=== PATIENT | male | born 1965 | race Caucasian/White ===

== ENCOUNTER 2023-08-09 16:35 | Observation (INO) ==
--- NOTE | 2023-08-09 16:41 | ED Triage Note ---
Date of Service August 09, 2023 Provider in Triage Author: Matt Smith History of Present Illness This patient was briefly evaluated while in triage. An abbreviated physical exam was performed. This patient is a 58-year-old Male who presents to the ED for evaluation of chest pain, began this am. Began as aching. No recent trauma or injury. No hx or heart issues. Physical Exam GENERAL: 58 year old male. In no acute distress. SKIN: No lesions or rashes. HEART: Irregular rate and rhythm. LUNGS: Clear to auscultation. ABDOMEN: Bowel sounds normoactive. No guarding or rigidity. No tenderness of palpation. NEURO: Alert and oriented. No deficits. MUSCULOSKELETAL: No deformities to inspection of the extremities. PSYCH: Patient is pleasant and answers all questions appropriately. Hypertensive and tachycardic. Initial orders for labs and / or imaging were placed and patient was placed and patient taken to room for further assessment.
[2023-08-09] MEDS ORDERED: NITROGLYCERIN SL 0.4 MG/TAB TAB SL STA ×2 (17:00→18:57)
[2023-08-09] MEDS ORDERED: NITROGLYCERIN SL 0.4 MG/TAB TAB ONE (17:01)
[2023-08-09 17:05] LABS: Basophils # (auto) 0.06 K/uL (0.00-0.20); Basophils % (auto) 0.4 %; Eosinophils # (auto) 0.01 K/uL (0.00-0.50); Eosinophils % (auto) 0.1 %; Hematocrit (blood only) 42.5 % (42.0-52.0); Hemoglobin 15.2 g/dl (14.0-18.0); Immature Granulocytes # (auto) 0.07 K/uL (0.01-0.20); Immature Granulocytes % (auto) 0.5 %; Lymphocytes # (auto) 1.14 K/uL (1.20-3.40); Mean Corpuscular Hemoglobin 33.6 pg (25.0-34.0); Mean Corpuscular Hgb Conc 35.8 g/dL (32.0-36.0); Mean Platelet Volume 10.1 fL (9.4-12.4); Monocytes # (auto) 1.34 K/uL (0.11-0.59); Monocytes % (auto) 9.4 %; Neutrophils # (auto) 11.57 K/uL (1.40-6.50); Neutrophils % (auto) 81.6 %; Platelet Count 248 K/uL (130-400); RDW Coefficient of Variation 11.9 % (11.5-14.5); RDW Standard Deviation 41.6 fL (36.4-46.3); Red Blood Count 4.52 M/uL (4.70-6.10); White Blood Count 14.19 K/ul (4.8-10.8)
[2023-08-09] MEDS ORDERED: OPTIRAY 320 125ml IV ONE (17:09)
--- NOTE | 2023-08-09 17:11 | Emergency Department Note ---
History of Present Illness General Chief Complaint: Chest Pain Stated Complaint: CHEST PAIN, LT RIB PAIN Time Seen by Provider: 08/09/23 16:55 History of Present Illness Provider Complaint: chest pain Time: 09:00 Duration: constant and progressively worsening Onset: during rest Pain Location: left chest Pain Radiation: none Severity: moderate Maximum Pain Intensity: 5 Current Pain Intensity: 5 Quality: + sharp Relieved By: + nothing Exacerbated By: + nothing Context: no recent illness, no recent surgery, no recent immobilization, no recent travel, no trauma/injury, no new medications or no history of DVT/PE Associated symptoms: no nausea, no vomiting, no diaphoresis, no dyspnea, no syncope, no palpitations, no fever or no cough Treatments prior to arrival: none Home Medications Medication Instructions Recorded Confirmed Type loratadine 10 mg tablet (Claritin) 10 mg PO DAILY PRN allergies 02/05/21 08/09/23 History Allergies Allergy/AdvReac Type Severity Reaction Status Date / Time No Known Allergies Allergy Verified 08/09/23 20:39 Past Med/Surg History Medical History Patient denies significant medical history Seasonal allergies Surgical History History of tonsillectomy Social History Smoking Status: Never smoker Do You Dip or Chew Tobacco: No; Hx Alcohol Use: Yes Alcohol type: wine Preferred Language: Romanian Communication Ability: Effective [employer] Required: No Beliefs That Will Affect Care: None marital status: Current Living Situation: Spouse and Family current occupational status: employed Feels Safe at Home: Yes Physical Exam Vital Signs Vital Signs - 24 hr 08/09/23 16:39 08/09/23 16:59 08/09/23 16:59 Temperature 36.4 C L Temperature Source Temporal Artery Scan Pulse Rate 128 H 128 H Pulse Rate from SpO2 Sensor 127 H Respiratory Rate 19 36 H Respiratory Effort / Characteristics Non-Labored Respiratory Depth Normal Blood Pressure 216/124 H 202/141 H Blood Pressure Mean 154 165 Pulse Oximetry 95 95 Oxygen Delivery Method Room Air Room Air Sepsis Recent Fever Within 48 Hours No Sepsis New/Unexplained Change in Mental Status No Sepsis Action Taken by Nursing No Action Required 08/09/23 17:00 08/09/23 17:00 08/09/23 17:05 Temperature Temperature Source Pulse Rate 125 H 130 H Pulse Rate from SpO2 Sensor 125 H 131 H Respiratory Rate 28 H 28 H Respiratory Effort / Characteristics Respiratory Depth Blood Pressure 204/136 H Blood Pressure Mean 158 Pulse Oximetry 94 94 Oxygen Delivery Method Room Air Room Air Sepsis Recent Fever Within 48 Hours Sepsis New/Unexplained Change in Mental Status Sepsis Action Taken by Nursing 08/09/23 17:17 08/09/23 17:19 08/09/23 17:20 Temperature Temperature Source Pulse Rate 129 H 122 H 120 H Pulse Rate from SpO2 Sensor 122 H 120 H Respiratory Rate 27 H 29 H Respiratory Effort / Characteristics Respiratory Depth Blood Pressure 184/121 H Blood Pressure Mean 140 Pulse Oximetry 94 94 Oxygen Delivery Method Room Air Room Air Sepsis Recent Fever Within 48 Hours Sepsis New/Unexplained Change in Mental Status Sepsis Action Taken by Nursing 08/09/23 17:20 08/09/23 17:22 08/09/23 17:25 Temperature Temperature Source Pulse Rate 119 H 122 H Pulse Rate from SpO2 Sensor 119 H 123 H Respiratory Rate 25 H 26 H Respiratory Effort / Characteristics Respiratory Depth Blood Pressure Blood Pressure Mean Pulse Oximetry 95 94 95 Oxygen Delivery Method Room Air Sepsis Recent Fever Within 48 Hours Sepsis New/Unexplained Change in Mental Status Sepsis Action Taken by Nursing 08/09/23 17:30 08/09/23 17:30 08/09/23 17:35 Temperature Temperature Source Pulse Rate 123 H 123 H Pulse Rate from SpO2 Sensor 123 H 123 H Respiratory Rate 23 26 H Respiratory Effort / Characteristics Respiratory Depth Blood Pressure 176/124 H Blood Pressure Mean 141 Pulse Oximetry 96 96 Oxygen Delivery Method Sepsis Recent Fever Within 48 Hours Sepsis New/Unexplained Change in Mental Status Sepsis Action Taken by Nursing 08/09/23 17:40 08/09/23 17:41 08/09/23 17:41 Temperature Temperature Source Pulse Rate 116 H 126 H Pulse Rate from SpO2 Sensor 116 H 126 H Respiratory Rate 31 H 31 H Respiratory Effort / Characteristics Respiratory Depth Blood Pressure 177/115 H 177/115 H Blood Pressure Mean 135 147 Pulse Oximetry 95 94 Oxygen Delivery Method Room Air Sepsis Recent Fever Within 48 Hours Sepsis New/Unexplained Change in Mental Status Sepsis Action Taken by Nursing 08/09/23 17:45 08/09/23 17:50 08/09/23 17:51 Temperature Temperature Source Pulse Rate 119 H 124 H 124 H Pulse Rate from SpO2 Sensor 119 H Respiratory Rate 30 H 27 H 22 Respiratory Effort / Characteristics Respiratory Depth Blood Pressure Blood Pressure Mean Pulse Oximetry 95 Oxygen Delivery Method Sepsis Recent Fever Within 48 Hours Sepsis New/Unexplained Change in Mental Status Sepsis Action Taken by Nursing 08/09/23 17:51 08/09/23 17:55 08/09/23 18:00 Temperature Temperature Source Pulse Rate 124 H Pulse Rate from SpO2 Sensor 125 H Respiratory Rate 32 H Respiratory Effort / Characteristics Respiratory Depth Blood Pressure 180/124 H 178/110 H Blood Pressure Mean 156 136 Pulse Oximetry 94 Oxygen Delivery Method Sepsis Recent Fever Within 48 Hours Sepsis New/Unexplained Change in Mental Status Sepsis Action Taken by Nursing 08/09/23 18:00 08/09/23 18:05 08/09/23 18:10 Temperature Temperature Source Pulse Rate 125 H 122 H Pulse Rate from SpO2 Sensor 126 H 125 H Respiratory Rate 26 H 28 H Respiratory Effort / Characteristics Respiratory Depth Blood Pressure 157/114 H Blood Pressure Mean 129 Pulse Oximetry 93 94 Oxygen Delivery Method Sepsis Recent Fever Within 48 Hours Sepsis New/Unexplained Change in Mental Status Sepsis Action Taken by Nursing 08/09/23 18:10 08/09/23 18:15 08/09/23 18:20 Temperature Temperature Source Pulse Rate 125 H 126 H 124 H Pulse Rate from SpO2 Sensor 125 H 124 H 123 H Respiratory Rate 22 22 26 H Respiratory Effort / Characteristics Respiratory Depth Blood Pressure Blood Pressure Mean Pulse Oximetry 94 94 94 Oxygen Delivery Method Sepsis Recent Fever Within 48 Hours Sepsis New/Unexplained Change in Mental Status Sepsis Action Taken by Nursing 08/09/23 18:20 08/09/23 18:25 08/09/23 18:30 Temperature Temperature Source Pulse Rate 125 H Pulse Rate from SpO2 Sensor 124 H Respiratory Rate 27 H Respiratory Effort / Characteristics Respiratory Depth Blood Pressure 169/121 H 169/125 H Blood Pressure Mean 138 142 Pulse Oximetry 94 Oxygen Delivery Method Sepsis Recent Fever Within 48 Hours Sepsis New/Unexplained Change in Mental Status Sepsis Action Taken by Nursing 08/09/23 18:30 08/09/23 18:40 08/09/23 18:40 Temperature Temperature Source Pulse Rate 124 H 121 H Pulse Rate from SpO2 Sensor 124 H 120 H Respiratory Rate 27 H 25 H Respiratory Effort / Characteristics Respiratory Depth Blood Pressure 193/117 H Blood Pressure Mean 158 Pulse Oximetry 93 95 Oxygen Delivery Method Sepsis Recent Fever Within 48 Hours Sepsis New/Unexplained Change in Mental Status Sepsis Action Taken by Nursing 08/09/23 18:41 08/09/23 18:50 08/09/23 18:50 Temperature Temperature Source Pulse Rate 117 H 99 H Pulse Rate from SpO2 Sensor 99 H Respiratory Rate 26 H Respiratory Effort / Characteristics Respiratory Depth Blood Pressure 193/117 H 189/135 H Blood Pressure Mean 147 Pulse Oximetry 98 Oxygen Delivery Method Room Air Sepsis Recent Fever Within 48 Hours Sepsis New/Unexplained Change in Mental Status Sepsis Action Taken by Nursing 08/09/23 19:00 08/09/23 19:01 08/09/23 19:01 Temperature Temperature Source Pulse Rate 102 H 101 H Pulse Rate from SpO2 Sensor 101 H 101 H Respiratory Rate 26 H 27 H Respiratory Effort / Characteristics Respiratory Depth Blood Pressure 200/118 H Blood Pressure Mean 128 Pulse Oximetry 96 96 Oxygen Delivery Method Sepsis Recent Fever Within 48 Hours Sepsis New/Unexplained Change in Mental Status Sepsis Action Taken by Nursing 08/09/23 19:02 08/09/23 19:02 08/09/23 19:10 Temperature Temperature Source Pulse Rate 101 H Pulse Rate from SpO2 Sensor 101 H Respiratory Rate 25 H Respiratory Effort / Characteristics Respiratory Depth Blood Pressure 194/128 H 189/125 H Blood Pressure Mean 155 155 Pulse Oximetry 96 Oxygen Delivery Method Sepsis Recent Fever Within 48 Hours Sepsis New/Unexplained Change in Mental Status Sepsis Action Taken by Nursing 08/09/23 19:10 08/09/23 19:27 08/09/23 19:28 Temperature Temperature Source Pulse Rate 103 H 108 H Pulse Rate from SpO2 Sensor 103 H 108 H Respiratory Rate 33 H 15 Respiratory Effort / Characteristics Respiratory Depth Blood Pressure 192/115 H Blood Pressure Mean 143 Pulse Oximetry 96 93 Oxygen Delivery Method Sepsis Recent Fever Within 48 Hours Sepsis New/Unexplained Change in Mental Status Sepsis Action Taken by Nursing 08/09/23 19:28 08/09/23 19:30 08/09/23 19:30 Temperature Temperature Source Pulse Rate 103 H 99 H 102 H Pulse Rate from SpO2 Sensor 103 H 103 H Respiratory Rate 15 30 H 15 Respiratory Effort / Characteristics Respiratory Depth Blood Pressure 190/120 H Blood Pressure Mean 143 Pulse Oximetry 94 94 94 Oxygen Delivery Method Room Air Sepsis Recent Fever Within 48 Hours Sepsis New/Unexplained Change in Mental Status Sepsis Action Taken by Nursing 08/09/23 19:31 08/09/23 19:31 08/09/23 19:36 Temperature Temperature Source Pulse Rate 101 H 101 H Pulse Rate from SpO2 Sensor 101 H Respiratory Rate 24 Respiratory Effort / Characteristics Respiratory Depth Blood Pressure 190/120 H Blood Pressure Mean 145 Pulse Oximetry 95 Oxygen Delivery Method Sepsis Recent Fever Within 48 Hours Sepsis New/Unexplained Change in Mental Status Sepsis Action Taken by Nursing 08/09/23 19:40 08/09/23 19:46 08/09/23 19:46 Temperature Temperature Source Pulse Rate 97 H 96 H Pulse Rate from SpO2 Sensor 96 H 97 H Respiratory Rate 15 15 Respiratory Effort / Characteristics Respiratory Depth Blood Pressure 186/117 H Blood Pressure Mean 142 Pulse Oximetry 94 93 Oxygen Delivery Method Sepsis Recent Fever Within 48 Hours Sepsis New/Unexplained Change in Mental Status Sepsis Action Taken by Nursing 08/09/23 19:50 08/09/23 20:00 08/09/23 20:06 Temperature Temperature Source Pulse Rate 98 H 110 H Pulse Rate from SpO2 Sensor 98 H 109 H Respiratory Rate 20 24 Respiratory Effort / Characteristics Respiratory Depth Blood Pressure 185/109 H Blood Pressure Mean 139 Pulse Oximetry 93 97 Oxygen Delivery Method Sepsis Recent Fever Within 48 Hours Sepsis New/Unexplained Change in Mental Status Sepsis Action Taken by Nursing 08/09/23 20:06 08/09/23 20:10 08/09/23 20:15 Temperature Temperature Source Pulse Rate 104 H 100 H 101 H Pulse Rate from SpO2 Sensor 103 H 100 H 102 H Respiratory Rate 15 23 17 Respiratory Effort / Characteristics Respiratory Depth Blood Pressure Blood Pressure Mean Pulse Oximetry 96 95 95 Oxygen Delivery Method Sepsis Recent Fever Within 48 Hours Sepsis New/Unexplained Change in Mental Status Sepsis Action Taken by Nursing 08/09/23 20:15 08/09/23 20:20 08/09/23 20:33 Temperature Temperature Source Pulse Rate 102 H 117 H Pulse Rate from SpO2 Sensor 103 H 116 H Respiratory Rate 22 15 Respiratory Effort / Characteristics Respiratory Depth Blood Pressure 192/112 H Blood Pressure Mean 155 Pulse Oximetry 95 93 Oxygen Delivery Method Sepsis Recent Fever Within 48 Hours Sepsis New/Unexplained Change in Mental Status Sepsis Action Taken by Nursing 08/09/23 20:40 08/09/23 20:45 08/09/23 20:45 Temperature Temperature Source Pulse Rate 108 H 96 H Pulse Rate from SpO2 Sensor 107 H 96 H Respiratory Rate 15 15 Respiratory Effort / Characteristics Respiratory Depth Blood Pressure 177/103 H Blood Pressure Mean 125 Pulse Oximetry 95 93 Oxygen Delivery Method Sepsis Recent Fever Within 48 Hours Sepsis New/Unexplained Change in Mental Status Sepsis Action Taken by Nursing 08/09/23 20:50 08/09/23 21:00 08/09/23 21:00 Temperature Temperature Source Pulse Rate 97 H 93 H Pulse Rate from SpO2 Sensor 97 H 94 H Respiratory Rate 23 22 Respiratory Effort / Characteristics Respiratory Depth Blood Pressure 151/95 H Blood Pressure Mean 104 Pulse Oximetry 93 94 Oxygen Delivery Method Sepsis Recent Fever Within 48 Hours Sepsis New/Unexplained Change in Mental Status Sepsis Action Taken by Nursing 08/09/23 21:10 08/09/23 21:15 08/09/23 21:15 Temperature Temperature Source Pulse Rate 93 H 101 H Pulse Rate from SpO2 Sensor 93 H 101 H Respiratory Rate 23 23 Respiratory Effort / Characteristics Respiratory Depth Blood Pressure 150/89 H Blood Pressure Mean 119 Pulse Oximetry 94 93 Oxygen Delivery Method Sepsis Recent Fever Within 48 Hours Sepsis New/Unexplained Change in Mental Status Sepsis Action Taken by Nursing 08/09/23 21:20 08/09/23 21:30 08/09/23 21:30 Temperature Temperature Source Pulse Rate 94 H 92 H Pulse Rate from SpO2 Sensor 90 93 H Respiratory Rate 22 22 Respiratory Effort / Characteristics Respiratory Depth Blood Pressure 153/81 H Blood Pressure Mean 106 Pulse Oximetry 93 94 Oxygen Delivery Method Sepsis Recent Fever Within 48 Hours Sepsis New/Unexplained Change in Mental Status Sepsis Action Taken by Nursing 08/09/23 21:40 08/09/23 21:45 08/09/23 21:45 Temperature Temperature Source Pulse Rate 92 H 95 H Pulse Rate from SpO2 Sensor 94 H 95 H Respiratory Rate 23 21 Respiratory Effort / Characteristics Respiratory Depth Blood Pressure 154/112 H Blood Pressure Mean 130 Pulse Oximetry 93 91 Oxygen Delivery Method Sepsis Recent Fever Within 48 Hours Sepsis New/Unexplained Change in Mental Status Sepsis Action Taken by Nursing 08/09/23 21:50 08/09/23 21:57 Temperature Temperature Source Pulse Rate 91 H 91 H Pulse Rate from SpO2 Sensor 91 H Respiratory Rate 15 Respiratory Effort / Characteristics Respiratory Depth Blood Pressure Blood Pressure Mean Pulse Oximetry 93 Oxygen Delivery Method Sepsis Recent Fever Within 48 Hours Sepsis New/Unexplained Change in Mental Status Sepsis Action Taken by Nursing Physical Exam HENT: Exam performed. - Head: Normocephalic and atraumatic. - Mouth/Throat: The oropharynx is clear and moist. No trismus in the jaw. No dental abscesses or uvula swelling. No oropharyngeal exudate or tonsillar abscesses. EYES: Conjunctivae and EOM are normal. Pupils are equal, round, and reactive to light. Right eye exhibits no discharge. Left eye exhibits no discharge. No scleral icterus. NECK: Normal range of motion. Neck supple. No JVD present. No spinous process tenderness present. No tracheal deviation and normal range of motion present. CV: Normal rate, regular rhythm, normal heart sounds and intact distal pulses. There is no peripheral edema. Palpable radial pulses bue. PULM/CHEST: Effort normal and breath sounds normal. No respiratory distress. No stridor. He has no wheezes. He has no rales. - Chest Wall: He exhibits no tenderness. ABD: The abdomen is soft. Bowel sounds are normal. He has no distension. No mass is present. There is no tenderness. There is no rebound, no guarding, no Snyder's sign and no tenderness at McBurney's point. Rovsig negative. MUSC/SKEL: Normal range of motion. There is no peripheral edema, tenderness or deformity. LYMPH: No cervical adenopathy. NEURO: He is alert and oriented to person, place, and time. He has normal strength. No cranial nerve deficit or sensory deficit. Coordination and gait normal. GCS eye subscore is 4. GCS verbal subscore is 5. GCS motor subscore is 6. Cerebellar tests wnl. SKIN: Skin is warm and dry. He is not diaphoretic. PSYCH: He has a normal mood and affect. Behavior is normal. Judgment and thought content normal. Course Course 1654: The patient was evaluated in room . A complete history and physical exam was performed Cardiac monitoring: An order was placed for continuous cardiac monitoring. The monitor shows a rate of 130 with sinus tachycardia rhythm interpreted by me Patient was given sublingual nitroglycerin and taken for CT scan to rule out dissection. 1720: Patient's blood pressure improved with 1 sublingual nitroglycerin. Patient reports his pain is mildly relieved with [address] of the chest abdomen viewed by me showed no dissection. 1855: Patient remains tachycardic and his blood pressure starting to increase again. Patient reports his chest pain is starting come back again but wants no narcotics. Repeat sublingual nitroglycerin will be given to the patient's. Patient's labs are within normal limits with exception of hypomagnesemia magnesium repleted in the emergency department. Patient [facility] be [facility] to the [facility] team. Discussed the case with Elsa Barr who states to admit to Dr. O'Leif. Administered Medications Potassium Chloride/Sodium Chloride (Normal Saline W/20 Meq Kcl) 20 meq in 1,000 mls @ 50 mls/hr IV .Q20H STA; Protocol Stop: 08/10/23 15:44 Last Admin: 08/09/23 20:07 Dose: 50 mls/hr Documented By: PRISCILLAN Discontinued Medications Sodium Chloride (Nss) 1,000 mls @ 999 mls/hr IV .Q1H1M ONE Stop: 08/09/23 19:34 Last Infusion: 08/09/23 19:40 Dose: Infused Documented By: Admin: 08/09/23 18:37 Dose: 999 mls/hr Documented By: CC Magnesium Sulfate/Dextrose (Magnesium Sulfate / D5w) 1 gm in 100 mls @ 100 mls/hr IV NOW STA Stop: 08/09/23 19:33 Last Infusion: 08/09/23 19:49 Dose: Infused Documented By: Admin: 08/09/23 18:49 Dose: 100 mls/hr Documented By: CC Magnesium Sulfate/Dextrose (Magnesium Sulfate / D5w) 1 gm in 100 mls @ 50 mls/hr IV ONE STA Stop: 08/09/23 21:43 Last Infusion: 08/09/23 22:07 Dose: Infused Documented By: Admin: 08/09/23 20:07 Dose: 50 mls/hr Documented By: TOMAS Ioversol (Optiray 320 125ml) 110 ml IV ONCE ONE Stop: 08/09/23 17:10 Last Admin: 08/09/23 17:10 Dose: 110 ml Documented By: ROXANNA Ketorolac Tromethamine (Ketorolac Tromethamine 15 Mg/Ml Vial) 15 mg IV NOW STA Stop: 08/09/23 18:37 Last Admin: 08/09/23 18:46 Dose: 15 mg Documented By: JOSE M Lisinopril (Lisinopril 5 Mg Tab) 5 mg PO NOW STA Stop: 08/09/23 19:50 Last Admin: 08/09/23 20:07 Dose: 5 mg Documented By: TOMAS Metoprolol Tartrate (Metoprolol Tartrate 1 Mg/Ml Vial) 2.5 mg IV NOW STA Stop: 08/09/23 18:37 Last Admin: 08/09/23 18:41 Dose: 2.5 mg Documented By: CC Nitroglycerin (Nitroglycerin Sl 0.4 Mg/Tab Tab) 0.4 mg SL NOW STA Stop: 08/09/23 17:01 Last Admin: 08/09/23 17:03 Dose: 0.4 mg Documented By: CC Nitroglycerin (Nitroglycerin Sl 0.4 Mg/Tab Tab) Confirm Administered Dose 0.4 mg .ROUTE .STK-MED ONE Stop: 08/09/23 17:02 Last Admin: 08/09/23 17:24 Dose: Not Given Documented By: CC Nitroglycerin (Nitroglycerin Sl 0.4 Mg/Tab Tab) 0.4 mg SL NOW STA Stop: 08/09/23 18:58 Last Admin: 08/09/23 19:13 Dose: 0.4 mg Documented By: LILA Nitroglycerin (Nitroglycerin 2% Ointment 30gm Tube) 0.5 inch EXT NOW STA Stop: 08/09/23 18:58 Last Admin: 08/09/23 19:13 Dose: 0.5 inch Documented By: LILA Medical Decision Making Laboratory Data Attestation: I reviewed the patient's lab results. 08/09/23 16:52 08/09/23 16:52 Labs: Lab Results 08/09/23 08/09/23 08/09/23 Range/Units 16:52 16:53 17:29 WBC 14.19 H (4.8-10.8) K/ul RBC 4.52 L (4.70-6.10) M/uL Hgb 15.2 (14.0-18.0) g/dl Hct 42.5 (42.0-52.0) % MCV 94.0 (80.0-100.0) fL MCH 33.6 (25.0-34.0) pg MCHC 35.8 (32.0-36.0) g/dL RDW Std Deviation 41.6 (36.4-46.3) fL RDW Coeff of Laura 11.9 (11.5-14.5) % Plt Count 248 (130-400) K/uL MPV 10.1 (9.4-12.4) fL Immature Gran % (Auto) 0.5 % Neut % (Auto) 81.6 % Lymph % (Auto) 8.0 % [place] % (Auto) 9.4 % Eos % (Auto) 0.1 % Baso % (Auto) 0.4 % Neut # (Auto) 11.57 H (1.40-6.50) K/uL Lymph # (Auto) 1.14 L (1.20-3.40) K/uL [place] # (Auto) 1.34 H (0.11-0.59) K/uL Eos # (Auto) 0.01 (0.00-0.50) K/uL Baso # (Auto) 0.06 (0.00-0.20) K/uL Immature Gran # (Auto) 0.07 (0.01-0.20) K/uL ESR 26 H (0-20) mm/hr PT 10.9 (9.0-12.0) Seconds INR 1.0 (0.9-1.1) APTT 27.7 (21.0-31.0) Seconds PTT Ratio 1.0 Sodium 133 L (136-145) mmol/L Potassium 3.5 (3.5-5.1) mmol/L Chloride 96 L (98-107) mmol/L Carbon Dioxide 22 (21-32) mmol/L Anion Gap 15 H (3-11) BUN 12 (6-23) mg/dl Creatinine 0.72 (0.6-1.4) mg/dl Est Cr Clr Drug Dosing 104.9 ml/min Est GFR ( Amer) 118.3 ml/min Est GFR (Non-Af Amer) 102.1 ml/min BUN/Creatinine Ratio 16.7 (10-20) Glucose 126 H (70-99(Fasting)) mg/dl Calcium 9.5 (8.6-10.3) mg/dl Magnesium 1.4 L (1.7-2.4) mg/dl Total Bilirubin 0.8 (0.2-1.0) mg/dl AST 42 H (13-39) U/L ALT 40 (7-52) U/L Alkaline Phosphatase 78 (34-104) U/L Troponin I High Sens 11.5 (0-20) pg/ml Total Protein 8.2 (6.0-8.3) gm/dl Albumin 4.9 (3.4-5.0) gm/dl Globulin 3.3 (2.5-4.0) gm/dl Albumin/Globulin Ratio 1.5 (0.9-2) Lipase 32 (11-82) U/L Procalcitonin 0.06 (0-0.5) ng/ml TSH 1.476 (0.300-4.500) uIu/ml Urine Color Yellow Urine Appearance Clear (Clear) Urine pH 6.0 (4.5-7.5) Ur Specific Hawkins 1.038 H (1.000-1.030) Urine Protein Negative (Negative) Urine Glucose (UA) Negative (Negative) Urine Ketones Negative (Negative) Urine Blood Negative (Negative) Urine Nitrite Negative (Negative) Urine Bilirubin Negative (Negative) Urine Urobilinogen Negative (Negative) Ur Leukocyte Esterase Negative (Negative) Urine Opiates Screen Neg (Neg) Ur Methadone, Qual Neg (Neg) Urine Barbiturates Neg (Neg) Ur Phencyclidine (PCP) Neg (Neg) U Amphetamin/Meth Scrn Neg (Neg) MDMA (Ecstasy) Screen Neg (Neg) U Benzodiazepines Scrn Neg (Neg) Ur Cocaine Metabolite Neg (Neg) U Marijuana (THC) Screen Neg (Neg) 08/09/23 Range/Units 19:30 WBC (4.8-10.8) K/ul RBC (4.70-6.10) M/uL Hgb (14.0-18.0) g/dl Hct (42.0-52.0) % MCV (80.0-100.0) fL MCH (25.0-34.0) pg MCHC (32.0-36.0) g/dL RDW Std Deviation (36.4-46.3) fL RDW Coeff of Laura (11.5-14.5) % Plt Count (130-400) K/uL MPV (9.4-12.4) fL Immature Gran % (Auto) % Neut % (Auto) % Lymph % (Auto) % [place] % (Auto) % Eos % (Auto) % Baso % (Auto) % Neut # (Auto) (1.40-6.50) K/uL Lymph # (Auto) (1.20-3.40) K/uL [place] # (Auto) (0.11-0.59) K/uL Eos # (Auto) (0.00-0.50) K/uL Baso # (Auto) (0.00-0.20) K/uL Immature Gran # (Auto) (0.01-0.20) K/uL ESR (0-20) mm/hr PT (9.0-12.0) Seconds INR (0.9-1.1) APTT (21.0-31.0) Seconds PTT Ratio Sodium (136-145) mmol/L Potassium (3.5-5.1) mmol/L Chloride (98-107) mmol/L Carbon Dioxide (21-32) mmol/L Anion Gap (3-11) BUN (6-23) mg/dl Creatinine (0.6-1.4) mg/dl Est Cr Clr Drug Dosing ml/min Est GFR ( Amer) ml/min Est GFR (Non-Af Amer) ml/min BUN/Creatinine Ratio (10-20) Glucose (70-99(Fasting)) mg/dl Calcium (8.6-10.3) mg/dl Magnesium (1.7-2.4) mg/dl Total Bilirubin (0.2-1.0) mg/dl AST (13-39) U/L ALT (7-52) U/L Alkaline Phosphatase (34-104) U/L Troponin I High Sens 12.4 (0-20) pg/ml Total Protein (6.0-8.3) gm/dl Albumin (3.4-5.0) gm/dl Globulin (2.5-4.0) gm/dl Albumin/Globulin Ratio (0.9-2) Lipase (11-82) U/L Procalcitonin (0-0.5) ng/ml TSH (0.300-4.500) uIu/ml Urine Color Urine Appearance (Clear) Urine pH (4.5-7.5) Ur Specific Hawkins (1.000-1.030) Urine Protein (Negative) Urine Glucose (UA) (Negative) Urine Ketones (Negative) Urine Blood (Negative) Urine Nitrite (Negative) Urine Bilirubin (Negative) Urine Urobilinogen (Negative) Ur Leukocyte Esterase (Negative) Urine Opiates Screen (Neg) Ur Methadone, Qual (Neg) Urine Barbiturates (Neg) Ur Phencyclidine (PCP) (Neg) U Amphetamin/Meth Scrn (Neg) MDMA (Ecstasy) Screen (Neg) U Benzodiazepines Scrn (Neg) Ur Cocaine Metabolite (Neg) U Marijuana (THC) Screen (Neg) Imaging Data Chest x-ray: Attestation: I personally reviewed and interpreted this imaging study as follows: My impression: Chest x-ray negative. Airway clear. No pneumothorax. No consolidation. No cardiomegaly or cephalization.. No free air under the diaphragm. No fractures of the skeletal structures. Radiologist's impression: SINGLE VIEW CHEST CLINICAL HISTORY: Atypical chest pain. FINDINGS: An AP, portable, upright chest radiograph is correlated with the dated 02/05/2021. The cardiomediastinal silhouette is unremarkable. There is bibasilar scarring/atelectasis. No airspace consolidation or large pleural effusion is identified. No pneumothorax is seen. The skeletal structures are osteopenic. There are chronic/healed left-sided rib fractures. IMPRESSION: No acute cardiopulmonary abnormality is identified ACT 112: Negative or not required by law. Electronically signed by: Dewey Claudio M.D. 08/09/2023 5:16 PM Dictated: 08/09/231714 Transcribed: 08/09/231714 CT scan - chest: Attestation: I personally reviewed and interpreted this imaging study as follows: My impression: CTA of the chest: No dissection Radiologist's impression: CT ANGIOGRAM OF THE CHEST COMBO; CT ANGIOGRAM OF THE ABDOMEN AND PELVIS CLINICAL HISTORY: Atypical chest pain. Generalized abdominal pain. COMPARISON STUDY: CT scan of the chest, abdomen, and pelvis dated 02/05/2021. Chest x-ray dated 08/09/2023. TECHNIQUE: Unenhanced CT scan of the chest is performed. Following the IV administration of 110 cc of Optiray 320, CT angiogram of the chest, abdomen, and pelvis was performed from the thoracic inlet to the proximal femora. Images are reviewed in the axial, sagittal, and coronal planes. 3-D MIPS images are created and assessed. IV contrast was administered without complication. A dose lowering technique was utilized adhering to the principles of ALARA. CT DOSE: 1626.84 mGy.cm FINDINGS: CHEST: Thyroid: Imaged portions of the thyroid gland are normal in size and attenuation. Thoracic aorta: No intramural hematoma is seen on the unenhanced series. The thoracic aorta is normal in course and caliber. The aortic arch demonstrates 4- vessel variant anatomy. No aneurysm or dissection is seen. The arch vessels are widely patent. Pulmonary vasculature: The pulmonary trunk is normal in caliber. There are no filling defects identified in the central pulmonary vessels to indicate pulmonary embolus. Note that this examination was not protocoled for evaluation of the pulmonary arteries. Heart: The heart is normal in size and without pericardial effusion. There is coronary artery atherosclerosis. Lungs and pleural spaces: There is bibasilar scarring/atelectasis. No airspace consolidation or pleural effusion is identified. The trachea and central airways are clear. Mediastinum: There is no mediastinal lymphadenopathy. Pam: Clear. Axillae: There is no axillary lymphadenopathy. Bony thorax: No destructive bony lesions are identified. Arthritic change is seen in the shoulders. There are chronic/healed bilateral rib fractures. ABDOMEN AND PELVIS: Liver: The contrast-enhanced liver is normal in size, contour, and attenuation. There is no intrahepatic biliary ductal dilatation. The main portal veins appear patent. A 1 cm hypervascular focus in the left lobe on image #88 is unchanged and may represent a flash filling hemangioma. Gallbladder: Unremarkable. Spleen: Normal in size and attenuation. Pancreas: Unremarkable. Adrenal glands: Unremarkable. Kidneys: The contrast enhanced kidneys are normal in size and without hydronephrosis. The kidneys enhance symmetrically. Abdominal aorta and iliac arteries: The abdominal aorta is normal in course and caliber. No dissection is seen. The iliac arteries are widely patent bilaterally. Major branches of the abdominal aorta: The celiac trunk, superior mesenteric, and inferior mesenteric arteries are widely patent. Hepatic arterial anatomy is conventional. The splenic artery is patent. There are 3 right renal arteries. One of these arises from the right common iliac artery. A single renal artery is seen on the left. The renal arteries are widely patent bilaterally. Stomach and bowel: A small hiatal hernia is noted. There is mild colonic diverticulosis without CT evidence of acute diverticulitis. No bowel obstruction is seen. The appendix is well-visualized and normal. Peritoneum: There is no intraperitoneal free air or abdominal ascites. Lymphadenopathy: None. Pelvic viscera: The bladder, prostate, and seminal vesicles are normal as visualized. Skeletal structures: No destructive bony lesions are seen. There is mild lumbosacral spondylosis. Arthritic change is seen in the hips. IMPRESSION: 1. Unremarkable CT angiogram of the thoracic aorta. 2. There is no airspace consolidation typical for pneumonia or pleural effusion. 3. Coronary artery atherosclerosis. 4. Unremarkable CT angiogram of the abdominal aorta and its major branches. 5. No acute infectious or inflammatory findings are seen in the abdomen or pelvis. 6. Colonic diverticulosis without CT evidence of acute diverticulitis. 7. Additional findings as above. ACT 112: Negative or not required by law. Electronically signed by: Dewey Claudio M.D. 08/09/2023 6:27 PM Dictated: 08/09/23 174 Transcribed: 08/09/231753 CT scan - abdomen: Attestation: I personally reviewed and interpreted this imaging study as follows: My impression: CT of the abdomen: No dissection Radiologist's impression: CT ANGIOGRAM OF THE CHEST COMBO; CT ANGIOGRAM OF THE ABDOMEN AND PELVIS CLINICAL HISTORY: Atypical chest pain. Generalized abdominal pain. COMPARISON STUDY: CT scan of the chest, abdomen, and pelvis dated 02/05/2021. Chest x-ray dated 08/09/2023. TECHNIQUE: Unenhanced CT scan of the chest is performed. Following the IV administration of 110 cc of Optiray 320, CT angiogram of the chest, abdomen, and pelvis was performed from the thoracic inlet to the proximal femora. Images are reviewed in the axial, sagittal, and coronal planes. 3-D MIPS images are created and assessed. IV contrast was administered without complication. A dose lowering technique was utilized adhering to the principles of ALARA. CT DOSE: 1626.84 mGy.cm FINDINGS: CHEST: Thyroid: Imaged portions of the thyroid gland are normal in size and attenuation. Thoracic aorta: No intramural hematoma is seen on the unenhanced series. The thoracic aorta is normal in course and caliber. The aortic arch demonstrates 4- vessel variant anatomy. No aneurysm or dissection is seen. The arch vessels are widely patent. Pulmonary vasculature: The pulmonary trunk is normal in caliber. There are no filling defects identified in the central pulmonary vessels to indicate pulmonary embolus. Note that this examination was not protocoled for evaluation of the pulmonary arteries. Heart: The heart is normal in size and without pericardial effusion. There is coronary artery atherosclerosis. Lungs and pleural spaces: There is bibasilar scarring/atelectasis. No airspace consolidation or pleural effusion is identified. The trachea and central airways are clear. Mediastinum: There is no mediastinal lymphadenopathy. Pam: Clear. Axillae: There is no axillary lymphadenopathy. Bony thorax: No destructive bony lesions are identified. Arthritic change is seen in the shoulders. There are chronic/healed bilateral rib fractures. ABDOMEN AND PELVIS: Liver: The contrast-enhanced liver is normal in size, contour, and attenuation. There is no intrahepatic biliary ductal dilatation. The main portal veins appear patent. A 1 cm hypervascular focus in the left lobe on image #88 is unchanged and may represent a flash filling hemangioma. Gallbladder: Unremarkable. Spleen: Normal in size and attenuation. Pancreas: Unremarkable. Adrenal glands: Unremarkable. Kidneys: The contrast enhanced kidneys are normal in size and without hydronephrosis. The kidneys enhance symmetrically. Abdominal aorta and iliac arteries: The abdominal aorta is normal in course and caliber. No dissection is seen. The iliac arteries are widely patent bilaterally. Major branches of the abdominal aorta: The celiac trunk, superior mesenteric, and inferior mesenteric arteries are widely patent. Hepatic arterial anatomy is conventional. The splenic artery is patent. There are 3 right renal arteries. One of these arises from the right common iliac artery. A single renal artery is seen on the left. The renal arteries are widely patent bilaterally. Stomach and bowel: A small hiatal hernia is noted. There is mild colonic diverticulosis without CT evidence of acute diverticulitis. No bowel obstruction is seen. The appendix is well-visualized and normal. Peritoneum: There is no intraperitoneal free air or abdominal ascites. Lymphadenopathy: None. Pelvic viscera: The bladder, prostate, and seminal vesicles are normal as visualized. Skeletal structures: No destructive bony lesions are seen. There is mild lumbosacral spondylosis. Arthritic change is seen in the hips. IMPRESSION: 1. Unremarkable CT angiogram of the thoracic aorta. 2. There is no airspace consolidation typical for pneumonia or pleural effusion. 3. Coronary artery atherosclerosis. 4. Unremarkable CT angiogram of the abdominal aorta and its major branches. 5. No acute infectious or inflammatory findings are seen in the abdomen or pelvis. 6. Colonic diverticulosis without CT evidence of acute diverticulitis. 7. Additional findings as above. ACT 112: Negative or not required by law. Electronically signed by: Dewey Claudio M.D. 08/09/2023 6:27 PM Dictated: 08/09/231742 Transcribed: 08/09/23 3033 ECG Data Attestation: I personally reviewed and interpreted this ECG as follows: Additional Comments: EKG #1 at 1646: Sinus tachycardia with a rate of 131. AK 128 QRS [address] elevation or ST depression. EKG #2 at 1700: Sinus tachycardia with a rate of 124. AK QRS and QTc intervals within normal limits. No ST elevation or ST depression. [facility] Narrative 1655: The patient was evaluated in room . A complete history and physical exam was performed Cardiac monitoring: An order was placed for continuous cardiac monitoring. The monitor shows a rate of 130 with sinus tachycardia rhythm interpreted by me Patient was given sublingual nitroglycerin and taken for CT scan to rule out dissection. 1720: Patient's blood pressure improved with 1 sublingual nitroglycerin. Patient reports his pain is mildly relieved with [address] of the chest abdomen viewed by me showed no dissection. 1855: Patient remains tachycardic and his blood pressure starting to increase again. Patient reports his chest pain is starting come back again but wants no narcotics. Repeat sublingual nitroglycerin will be given to the patient's. Patient's labs are within normal limits with exception of hypomagnesemia magnesium repleted in the emergency department. [facility]. Discussed the case with Elsa Barr who states to admit to Dr. Servin. Impression & Plan Chest pain, Hypomagnesemia Discharge Plan Visit Data Chief Complaint: Chest Pain Stated Complaint: CHEST PAIN, LT RIB PAIN ED Provider: Sarbjit Farrell Discharge Problem: Chest pain, Hypomagnesemia Patient Disposition: Admitted As Inpatient Discharge Instructions Interventions: ED Discharge Assessment Last Done: 08/09/23 22:18 Prescriptions Prescriptions: No Action loratadine [Claritin] 10 mg Tablet 10 mg PO DAILY PRN (Reason: allergies) Discharge Problem: Chest pain Qualifiers: Chest pain type: unspecified Qualified Code(s): R07.9 - Chest pain, unspecified
--- NOTE | 2023-08-09 17:17 | XRay Report ---
SINGLE VIEW CHEST CLINICAL HISTORY: Atypical chest pain. FINDINGS: An AP, portable, upright chest radiograph is correlated with the dated 02/05/2021. The cardio mediastinal silhouette is unremarkable. There is bibasilar scarring/atelectasis. No airspace consolid ation or large pleural effusion is identified. No pneumothorax is seen. The skeletal structures are o steopenic. There are chronic/healed left-sided rib fractures. IMPRESSION: No acute cardiopulmonary abnormality is identified ACT 112: Negative or not required by law. Electronically signed by: Dewey Claudio M.D. 08/09/2023 5:16 PM
[2023-08-09 17:22] LABS: Albumin Globulin Ratio 1.5 (0.9-2); Albumin Level 4.9 gm/dl (3.4-5.0); BUN Creatinine Ratio 16.7 (10-20); Bilirubin,Total 0.8 mg/dl (0.2-1.0); Calcium 9.5 mg/dl (8.6-10.3); Creatinine Clr Calc Pharmacy 104.9 ml/min; Est GFR (African American) 118.3 ml/min; Est GFR (Non-African American) 102.1 ml/min; Globulin 3.3 gm/dl (2.5-4.0); Magnesium 1.4 mg/dl (1.7-2.4); Potassium 3.5 mmol/L (3.5-5.1); Total Protein 8.2 gm/dl (6.0-8.3)
[2023-08-09 17:28] LABS: Troponin I High Sensitivity 11.5 pg/ml (0-20)
[2023-08-09 17:38] LABS: Partial Thromboplastin Time 27.7 Seconds (21.0-31.0); Prothrombin Time 10.9 Seconds (9.0-12.0); Thyroid Stimulating Hormone 1.476 uIu/ml (0.300-4.500)
[2023-08-09 17:40] LABS: Appearance Urine Clear (Clear); Bilirubin Urine Negative (Negative); Blood Urine Negative (Negative); Color Urine Yellow; Glucose Urine UA Negative (Negative); Ketones Urine Negative (Negative); Leukocyte Esterase Urine Negative (Negative); Nitrite Urine Negative (Negative); Protein Urine Negative (Negative); Specific Gravity Urine 1.038 (1.000-1.030); Urobilinogen Urine Negative (Negative)
[2023-08-09 18:08] LABS: Amphetamines+Metham, Urine Neg (Neg); Barbiturates, Urine Neg (Neg); Benzodiazepine, Urine Neg (Neg); Cocaine, Urine Neg (Neg); MDMA (Ecstacy), Urine Neg (Neg); Marijuana, Urine Neg (Neg); Methadone, Urine Neg (Neg); Opiate, Urine Neg (Neg); Phencyclidine, Urine Neg (Neg)
--- NOTE | 2023-08-09 18:30 | CT Scan Report ---
CT ANGIOGRAM OF THE CHEST COMBO; CT ANGIOGRAM OF THE ABDOMEN AND PELVIS CLINICAL HISTORY: Atypical chest pain. Generalized abdominal pain. COMPARISON STUDY: CT scan of the chest, abdomen, and pelvis dated 02/05/2021. Chest x-ray dated 023. TECHNIQUE: Unenhanced CT scan of the chest is performed. Following the IV administration of 110 cc of Optiray 320, CT angiogram of the chest, abdomen, and pelvis was performed from the thoracic inlet to the proximal femora. Images are reviewed in the axial, sagittal, and coronal planes. 3-D MIPS images are created and assessed. IV contrast was administered without complication. A dose lowering techniq ue was utilized adhering to the principles of ALARA. CT DOSE: 1626.84 mGy.cm FINDINGS: CHEST: Thyroid: Imaged portions of the thyroid gland are normal in size and attenuation. Thoracic aorta: No intramural hematoma is seen on the unenhanced series. The thoracic aorta is normal in course and caliber. The aortic arch demonstrates 4-vessel variant anatomy. No aneurysm or dissect ion is seen. The arch vessels are widely patent. Pulmonary vasculature: The pulmonary trunk is normal in caliber. There are no filling defects identif ied in the central pulmonary vessels to indicate pulmonary embolus. Note that this examination was no t protocoled for evaluation of the pulmonary arteries. Heart: The heart is normal in size and without pericardial effusion. There is coronary artery atheros clerosis. Lungs and pleural spaces: There is bibasilar scarring/atelectasis. No airspace consolidation or pleur al effusion is identified. The trachea and central airways are clear. Mediastinum: There is no mediastinal lymphadenopathy. Pam: Clear. Axillae: There is no axillary lymphadenopathy. Bony thorax: No destructive bony lesions are identified. Arthritic change is seen in the shoulders. T here are chronic/healed bilateral rib fractures. ABDOMEN AND PELVIS: Liver: The contrast-enhanced liver is normal in size, contour, and attenuation. There is no intrahepa tic biliary ductal dilatation. The main portal veins appear patent. A 1 cm hypervascular focus in the left lobe on image #88 is unchanged and may represent a flash filling hemangioma. Gallbladder: Unremarkable. Spleen: Normal in size and attenuation. Pancreas: Unremarkable. Adrenal glands: Unremarkable. Kidneys: The contrast enhanced kidneys are normal in size and without hydronephrosis. The kidneys enh ance symmetrically. Abdominal aorta and iliac arteries: The abdominal aorta is normal in course and caliber. No dissectio n is seen. The iliac arteries are widely patent bilaterally. Major branches of the abdominal aorta: The celiac trunk, superior mesenteric, and inferior mesenteric arteries are widely patent. Hepatic arterial anatomy is conventional. The splenic artery is patent. There are 3 right renal arteries. One of these arises from the right common iliac artery. A single r enal artery is seen on the left. The renal arteries are widely patent bilaterally. Stomach and bowel: A small hiatal hernia is noted. There is mild colonic diverticulosis without CT ev idence of acute diverticulitis. No bowel obstruction is seen. The appendix is well-visualized and no rmal. Peritoneum: There is no intraperitoneal free air or abdominal ascites. Lymphadenopathy: None. Pelvic viscera: The bladder, prostate, and seminal vesicles are normal as visualized. Skeletal structures: No destructive bony lesions are seen. There is mild lumbosacral spondylosis. Art hritic change is seen in the hips. IMPRESSION: 1. Unremarkable CT angiogram of the thoracic aorta. 2. There is no airspace consolidation typical for pneumonia or pleural effusion. 3. Coronary artery atherosclerosis. 4. Unremarkable CT angiogram of the abdominal aorta and its major branches. 5. No acute infectious or inflammatory findings are seen in the abdomen or pelvis. 6. Colonic diverticulosis without CT evidence of acute diverticulitis. 7. Additional findings as above. ACT 112: Negative or not required by law. Electronically signed by: Dewey Claudio M.D. 08/09/2023 6:27 PM
[2023-08-09] MEDS ORDERED: SODIUM CHLORIDE 0.9% 1,000 ML IV ONE (18:34)
[2023-08-09] MEDS ORDERED: MAGNESIUM SULFATE / D5W 1 GM/100 ML BAG IV STA ×2 (18:34→19:44)
[2023-08-09] MEDS ORDERED: KETOROLAC TROMETHAMINE 15 MG/ML VIAL IV STA (18:36)
[2023-08-09] MEDS ORDERED: METOPROLOL TARTRATE 1 MG/ML VIAL IV STA (18:36)
[2023-08-09] MEDS ORDERED: NITROGLYCERIN 2% OINTMENT 30GM TUBE EXT STA (18:57)
[2023-08-09] MEDS ORDERED: NSS + 20MEQ KCL 20 MEQ/1,000 ML BAG IV STA (19:45)
[2023-08-09] MEDS ORDERED: lisinopril 5 MG TAB PO STA (19:49)
--- NOTE | 2023-08-09 20:38 | History & Physical Report ---
Date of Service August 09, 2023 Assessment & Plan (1) Chest pain: Plan: Multifactorial: Hypertensive crisis, history hypertension, medication noncompliance Possible Lyme carditis given equivocal test and elevated inflammatory markers, possible sepsis Musculoskeletal given reproducibility Nitro headache Hypomagnesemia Hyperglycemia rule out DM daily alcohol intake, denies abuse, no prior history of withdrawal as per patient PCU Initiate lisinopril CS, Ceftriaxone for possible Lyme carditis TTE Analgesia DC nitro, CT head if with persistent headache symptoms Cardiology consult Re: Chest pain, hypertensive crisis Check hemoglobin A1c DVT prophylaxis. Lovenox subcu Full code Text document was generated using [employer] recognition software. It may contain grammatical or spelling errors. Kindly contact undersigned for clarification of any documentation item in question. History of Present Illness Chief Complaint: Left-sided chest pain Primary Care Provider: NO PCP History obtained from patient and records. Medical history significant for hypertension, daily alcohol intake, Lyme disease status post treatment (2019), medical noncompliance. Patient experienced pleuritic left lower chest pain today while at work. No radiation. No shortness of breath, no unusual cough symptoms Similar to rib pain episode from coughing secondary to pneumonia years ago. No headache symptoms, no nausea, no vomiting. No recollection of recent tick bites but "ticks are everywhere" as per patient. SBP 210s, heart rate 120s upon arrival at the ER. Patient more comfortable after Toradol, nitro, metoprolol administration at the ER. SBP currently 190s. Patient currently complaining of mild headache symptoms post Nitropaste placement. Patient has a history of hypertension but has refused maintenance medications in the past because he does not like taking pills. Medical History as above Surgical History : Tonsillectomy, right shoulder surgery Family History : Heart disease, hypertension Personal/Social history : Non-smoker, daily wine intake without abuse concerns as per patient, engineering lecturer by profession Allergies Allergy/AdvReac Type Severity Reaction Status Date / Time nitroglycerin AdvReac Mild Headache Verified 08/09/23 23:03 Home Medications Medication Instructions Recorded Confirmed Type loratadine 10 mg tablet (Claritin) 10 mg PO DAILY PRN allergies 02/05/21 08/09/23 History Past Med/Surg History Medical History Patient denies significant medical history Seasonal allergies Surgical History History of tonsillectomy Social History Smoking Status: Unknown if ever smoked Do You Dip or Chew Tobacco: No; Hx Alcohol Use: Yes Alcohol type: beer and wine Hx Substance Use: No Preferred Language: Macanese Communication Ability: Effective Orthotics Technician Required: No Beliefs That Will Affect Care: None marital status: Current Living Situation: Spouse current occupational status: employed Feels Safe at Home: Yes Safety Concerns: Feels Safe At This Time Assistive Devices: None Review of Systems Review of Systems: As per HPI, all other systems reviewed and negative Physical Exam Physical Exam: GENERAL: Comfortable, no respiratory distress SKIN: Normal color, warm HEENT: [place] palpebral conjunctivae, no ptosis, dry buccal mucosa NECK : Supple, no tenderness CHEST : CTA, left chest tenderness HEART : Tachycardic, no obvious murmurs ABDOMEN: Some distention, nontender EXTREMITIES : No LE swelling/tenderness, no other conspicuous deformities noted NEUROLOGIC : Coherent, no facial asymmetry, no other gross focality Results & Data Results & Data Vital Signs (Past 12 Hours) Vital Signs Temp Pulse Resp BP Pulse Ox O2 Del Method 08/09/23 20:20 102 H 22 95 08/09/23 20:15 192/112 H 08/09/23 20:15 101 H 17 95 08/09/23 20:10 100 H 23 95 08/09/23 20:06 104 H 15 96 08/09/23 20:06 185/109 H 08/09/23 20:00 110 H 24 97 08/09/23 19:50 98 H 20 93 08/09/23 19:46 96 H 15 93 08/09/23 19:46 186/117 H 08/09/23 19:40 97 H 15 94 08/09/23 19:36 101 H 08/09/23 19:31 101 H 24 95 08/09/23 19:31 190/120 H 08/09/23 19:30 102 H 15 94 08/09/23 19:30 99 H 30 H 190/120 H 94 Room Air 08/09/23 19:28 103 H 15 94 08/09/23 19:28 192/115 H 08/09/23 19:27 108 H 15 93 08/09/23 19:10 103 H 33 H 96 08/09/23 19:10 189/125 H 08/09/23 19:02 194/128 H 08/09/23 19:02 101 H 25 H 96 08/09/23 19:01 101 H 27 H 96 08/09/23 19:01 200/118 H 08/09/23 19:00 102 H 26 H 96 08/09/23 18:50 99 H 26 H 98 Room Air 08/09/23 18:50 189/135 H 08/09/23 18:41 117 H 193/117 H 08/09/23 18:40 121 H 25 H 95 08/09/23 18:40 193/117 H 08/09/23 18:30 124 H 27 H 93 08/09/23 18:30 169/125 H 08/09/23 18:25 125 H 27 H 94 08/09/23 18:20 169/121 H 08/09/23 18:20 124 H 26 H 94 08/09/23 18:15 126 H 22 94 08/09/23 18:10 125 H 22 94 08/09/23 18:10 157/114 H 08/09/23 18:05 122 H 28 H 94 08/09/23 18:00 125 H 26 H 93 08/09/23 18:00 178/110 H 08/09/23 17:55 124 H 32 H 94 08/09/23 17:51 180/124 H 08/09/23 17:51 124 H 22 08/09/23 17:50 124 H 27 H 08/09/23 17:45 119 H 30 H 95 08/09/23 17:41 126 H 31 H 94 08/09/23 17:41 177/115 H 08/09/23 17:40 116 H 31 H 177/115 H 95 Room Air 08/09/23 17:35 123 H 26 H 96 08/09/23 17:30 123 H 23 96 08/09/23 17:30 176/124 H 08/09/23 17:25 122 H 26 H 95 08/09/23 17:22 94 Room Air 08/09/23 17:20 119 H 25 H 95 08/09/23 17:20 120 H 29 H 184/121 H 94 Room Air 08/09/23 17:19 122 H 27 H 94 Room Air 08/09/23 17:17 129 H 08/09/23 17:05 130 H 28 H 94 Room Air 08/09/23 17:00 125 H 28 H 94 Room Air 08/09/23 17:00 204/136 H 08/09/23 16:59 128 H 36 H 95 Room Air 08/09/23 16:59 202/141 H 08/09/23 16:39 36.4 C L 128 H 19 216/124 H 95 Room Air Laboratory Results Laboratory Results WBC 14.19 K/ul (4.8-10.8) H 08/09/23 16:52 RBC 4.52 M/uL (4.70-6.10) L 08/09/23 16:52 Hgb 15.2 g/dl (14.0-18.0) 08/09/23 16:52 Hct 42.5 % (42.0-52.0) 08/09/23 16:52 MCV 94.0 fL (80.0-100.0) 08/09/23 16:52 MCH 33.6 pg (25.0-34.0) 08/09/23 16:52 MCHC 35.8 g/dL (32.0-36.0) 08/09/23 16:52 RDW Std Deviation 41.6 fL (36.4-46.3) 08/09/23 16:52 RDW Coeff of Laura 11.9 % (11.5-14.5) 08/09/23 16:52 Plt Count 248 K/uL (130-400) 08/09/23 16:52 MPV 10.1 fL (9.4-12.4) 08/09/23 16:52 Immature Gran % (Auto) 0.5 % 08/09/23 16:52 Neut % (Auto) 81.6 % 08/09/23 16:52 Lymph % (Auto) 8.0 % 08/09/23 16:52 [place] % (Auto) 9.4 % 08/09/23 16:52 Eos % (Auto) 0.1 % 08/09/23 16:52 Baso % (Auto) 0.4 % 08/09/23 16:52 Neut # (Auto) 11.57 K/uL (1.40-6.50) H 08/09/23 16:52 Lymph # (Auto) 1.14 K/uL (1.20-3.40) L 08/09/23 16:52 [place] # (Auto) 1.34 K/uL (0.11-0.59) H 08/09/23 16:52 Eos # (Auto) 0.01 K/uL (0.00-0.50) 08/09/23 16:52 Baso # (Auto) 0.06 K/uL (0.00-0.20) 08/09/23 16:52 Immature Gran # (Auto) 0.07 K/uL (0.01-0.20) 08/09/23 16:52 PT 10.9 Seconds (9.0-12.0) 08/09/23 16:52 INR 1.0 (0.9-1.1) 08/09/23 16:52 APTT 27.7 Seconds (21.0-31.0) 08/09/23 16:52 PTT Ratio 1.0 08/09/23 16:52 Sodium 133 mmol/L (136-145) L 08/09/23 16:52 Potassium 3.5 mmol/L (3.5-5.1) 08/09/23 16:52 Chloride 96 mmol/L (98-107) L 08/09/23 16:52 Carbon Dioxide 22 mmol/L (21-32) 08/09/23 16:52 Anion Gap 15 (3-11) H 08/09/23 16:52 BUN 12 mg/dl (6-23) 08/09/23 16:52 Creatinine 0.72 mg/dl (0.6-1.4) 08/09/23 16:52 Est Cr Clr Drug Dosing 104.9 ml/min 08/09/23 16:52 Est GFR ( Amer) 118.3 ml/min 08/09/23 16:52 Est GFR (Non-Af Amer) 102.1 ml/min 08/09/23 16:52 BUN/Creatinine Ratio 16.7 (10-20) 08/09/23 16:52 Glucose 126 mg/dl (70-99(Fasting)) H 08/09/23 16:52 Calcium 9.5 mg/dl (8.6-10.3) 08/09/23 16:52 Magnesium 1.4 mg/dl (1.7-2.4) L 08/09/23 16:52 Total Bilirubin 0.8 mg/dl (0.2-1.0) 08/09/23 16:52 AST 42 U/L (13-39) H 08/09/23 16:52 ALT 40 U/L (7-52) 08/09/23 16:52 Alkaline Phosphatase 78 U/L (34-104) 08/09/23 16:52 Troponin I High Sens 12.4 pg/ml (0-20) 08/09/23 19:30 Total Protein 8.2 gm/dl (6.0-8.3) 08/09/23 16:52 Albumin 4.9 gm/dl (3.4-5.0) 08/09/23 16:52 Globulin 3.3 gm/dl (2.5-4.0) 08/09/23 16:52 Albumin/Globulin Ratio 1.5 (0.9-2) 08/09/23 16:52 Lipase 32 U/L (11-82) 08/09/23 16:52 Procalcitonin 0.06 ng/ml (0-0.5) 08/09/23 16:53 TSH 1.476 uIu/ml (0.300-4.500) 08/09/23 16:52 Urine Color Yellow 08/09/23 17:29 Urine Appearance Clear (Clear) 08/09/23 17:29 Urine pH 6.0 (4.5-7.5) 08/09/23 17:29 Ur Specific [place] 1.038 (1.000-1.030) H 08/09/23 17:29 Urine Protein Negative (Negative) 08/09/23 17:29 Urine Glucose (UA) Negative (Negative) 08/09/23 17:29 Urine Ketones Negative (Negative) 08/09/23 17:29 Urine Blood Negative (Negative) 08/09/23 17:29 Urine Nitrite Negative (Negative) 08/09/23 17:29 Urine Bilirubin Negative (Negative) 08/09/23 17:29 Urine Urobilinogen Negative (Negative) 08/09/23 17:29 Ur Leukocyte Esterase Negative (Negative) 08/09/23 17:29 Urine Opiates Screen Neg (Neg) 08/09/23 17:29 Ur Methadone, Qual Neg (Neg) 08/09/23 17:29 Urine Barbiturates Neg (Neg) 08/09/23 17:29 Ur Phencyclidine (PCP) Neg (Neg) 08/09/23 17:29 U Amphetamin/Meth Scrn Neg (Neg) 08/09/23 17:29 MDMA (Ecstasy) Screen Neg (Neg) 08/09/23 17:29 U Benzodiazepines Scrn Neg (Neg) 08/09/23 17:29 Ur Cocaine Metabolite Neg (Neg) 08/09/23 17:29 U Marijuana (THC) Screen Neg (Neg) 08/09/23 17:29 Impressions Chest X-Ray 08/09/23 16:41 SINGLE VIEW CHEST CLINICAL HISTORY: Atypical chest pain. FINDINGS: An AP, portable, upright chest radiograph is correlated with the dated 02/05/2021. The cardiomediastinal silhouette is unremarkable. There is bibasilar scarring/atelectasis. No airspace consolidation or large pleural effusion is identified. No pneumothorax is seen. The skeletal structures are osteopenic. There are chronic/healed left-sided rib fractures. IMPRESSION: No acute cardiopulmonary abnormality is identified ACT 112: Negative or not required by law. Electronically signed by: Dewey Claudio M.D. 08/09/2023 5:16 PM Abdomen/Pelvis CTA 08/09/23 16:59 CT ANGIOGRAM OF THE CHEST COMBO; CT ANGIOGRAM OF THE ABDOMEN AND PELVIS CLINICAL HISTORY: Atypical chest pain. Generalized abdominal pain. COMPARISON STUDY: CT scan of the chest, abdomen, and pelvis dated 02/05/2021. Chest x-ray dated 08/09/2023. TECHNIQUE: Unenhanced CT scan of the chest is performed. Following the IV administration of 110 cc of Optiray 320, CT angiogram of the chest, abdomen, and pelvis was performed from the thoracic inlet to the proximal femora. Images are reviewed in the axial, sagittal, and coronal planes. 3-D MIPS images are created and assessed. IV contrast was administered without complication. A dose lowering technique was utilized adhering to the principles of ALARA. CT DOSE: 1626.84 mGy.cm FINDINGS: CHEST: Thyroid: Imaged portions of the thyroid gland are normal in size and attenuation. Thoracic aorta: No intramural hematoma is seen on the unenhanced series. The thoracic aorta is normal in course and caliber. The aortic arch demonstrates 4- vessel variant anatomy. No aneurysm or dissection is seen. The arch vessels are widely patent. Pulmonary vasculature: The pulmonary trunk is normal in caliber. There are no filling defects identified in the central pulmonary vessels to indicate pulmonary embolus. Note that this examination was not protocoled for evaluation of the pulmonary arteries. Heart: The heart is normal in size and without pericardial effusion. There is coronary artery atherosclerosis. Lungs and pleural spaces: There is bibasilar scarring/atelectasis. No airspace consolidation or pleural effusion is identified. The trachea and central airways are clear. Mediastinum: There is no mediastinal lymphadenopathy. Pam: Clear. Axillae: There is no axillary lymphadenopathy. Bony thorax: No destructive bony lesions are identified. Arthritic change is seen in the shoulders. There are chronic/healed bilateral rib fractures. ABDOMEN AND PELVIS: Liver: The contrast-enhanced liver is normal in size, contour, and attenuation. There is no intrahepatic biliary ductal dilatation. The main portal veins appear patent. A 1 cm hypervascular focus in the left lobe on image #88 is unchanged and may represent a flash filling hemangioma. Gallbladder: Unremarkable. Spleen: Normal in size and attenuation. Pancreas: Unremarkable. Adrenal glands: Unremarkable. Kidneys: The contrast enhanced kidneys are normal in size and without hydronephrosis. The kidneys enhance symmetrically. Abdominal aorta and iliac arteries: The abdominal aorta is normal in course and caliber. No dissection is seen. The iliac arteries are widely patent bilaterally. Major branches of the abdominal aorta: The celiac trunk, superior mesenteric, and inferior mesenteric arteries are widely patent. Hepatic arterial anatomy is conventional. The splenic artery is patent. There are 3 right renal arteries. One of these arises from the right common iliac artery. A single renal artery is seen on the left. The renal arteries are widely patent bilaterally. Stomach and bowel: A small hiatal hernia is noted. There is mild colonic diverticulosis without CT evidence of acute diverticulitis. No bowel obstruction is seen. The appendix is well-visualized and normal. Peritoneum: There is no intraperitoneal free air or abdominal ascites. Lymphadenopathy: None. Pelvic viscera: The bladder, prostate, and seminal vesicles are normal as visualized. Skeletal structures: No destructive bony lesions are seen. There is mild lumbosacral spondylosis. Arthritic change is seen in the hips. IMPRESSION: 1. Unremarkable CT angiogram of the thoracic aorta. 2. There is no airspace consolidation typical for pneumonia or pleural effusion. 3. Coronary artery atherosclerosis. 4. Unremarkable CT angiogram of the abdominal aorta and its major branches. 5. No acute infectious or inflammatory findings are seen in the abdomen or pelvis. 6. Colonic diverticulosis without CT evidence of acute diverticulitis. 7. Additional findings as above. ACT 112: Negative or not required by law. Electronically signed by: Dewey Claudio M.D. 08/09/2023 6:27 PM Chest CTA 08/09/23 16:59 CT ANGIOGRAM OF THE CHEST COMBO; CT ANGIOGRAM OF THE ABDOMEN AND PELVIS CLINICAL HISTORY: Atypical chest pain. Generalized abdominal pain. COMPARISON STUDY: CT scan of the chest, abdomen, and pelvis dated 02/05/2021. Chest x-ray dated 08/09/2023. TECHNIQUE: Unenhanced CT scan of the chest is performed. Following the IV admin istration of 110 cc of Optiray 320, CT angiogram of the chest, abdomen, and pelvis was performed from the thoracic inlet to the proximal femora. Images are reviewed in the axial, sagittal, and coronal planes. 3-D MIPS images are created and assessed. IV contrast was administered without complication. A dose lowering technique was utilized adhering to the principles of ALARA. CT DOSE: 1626.84 mGy.cm FINDINGS: CHEST: Thyroid: Imaged portions of the thyroid gland are normal in size and attenuation. Thoracic aorta: No intramural hematoma is seen on the unenhanced series. The thoracic aorta is normal in course and caliber. The aortic arch demonstrates 4- vessel variant anatomy. No aneurysm or dissection is seen. The arch vessels are widely patent. Pulmonary vasculature: The pulmonary trunk is normal in caliber. There are no filling defects identified in the central pulmonary vessels to indicate pulmonary embolus. Note that this examination was not protocoled for evaluation of the pulmonary arteries. Heart: The heart is normal in size and without pericardial effusion. There is coronary artery atherosclerosis. Lungs and pleural spaces: There is bibasilar scarring/atelectasis. No airspace consolidation or pleural effusion is identified. The trachea and central airways are clear. Mediastinum: There is no mediastinal lymphadenopathy. Pam: Clear. Axillae: There is no axillary lymphadenopathy. Bony thorax: No destructive bony lesions are identified. Arthritic change is seen in the shoulders. There are chronic/healed bilateral rib fractures. ABDOMEN AND PELVIS: Liver: The contrast-enhanced liver is normal in size, contour, and attenuation. There is no intrahepatic biliary ductal dilatation. The main portal veins appear patent. A 1 cm hypervascular focus in the left lobe on image #88 is unchanged and may represent a flash filling hemangioma. Gallbladder: Unremarkable. Spleen: Normal in size and attenuation. Pancreas: Unremarkable. Adrenal glands: Unremarkable. Kidneys: The contrast enhanced kidneys are normal in size and without hydronephrosis. The kidneys enhance symmetrically. Abdominal aorta and iliac arteries: The abdominal aorta is normal in course and caliber. No dissection is seen. The iliac arteries are widely patent bilaterally. Major branches of the abdominal aorta: The celiac trunk, superior mesenteric, and inferior mesenteric arteries are widely patent. Hepatic arterial anatomy is conventional. The splenic artery is patent. There are 3 right renal arteries. One of these arises from the right common iliac artery. A single renal artery is seen on the left. The renal arteries are widely patent bilaterally. Stomach and bowel: A small hiatal hernia is noted. There is mild colonic diverticulosis without CT evidence of acute diverticulitis. No bowel obstruction is seen. The appendix is well-visualized and normal. Peritoneum: There is no intraperitoneal free air or abdominal ascites. Lymphadenopathy: None. Pelvic viscera: The bladder, prostate, and seminal vesicles are normal as visualized. Skeletal structures: No destructive bony lesions are seen. There is mild lumbosacral spondylosis. Arthritic change is seen in the hips. IMPRESSION: 1. Unremarkable CT angiogram of the thoracic aorta. 2. There is no airspace consolidation typical for pneumonia or pleural effusion. 3. Coronary artery atherosclerosis. 4. Unremarkable CT angiogram of the abdominal aorta and its major branches. 5. No acute infectious or inflammatory findings are seen in the abdomen or pelvis. 6. Colonic diverticulosis without CT evidence of acute diverticulitis. 7. Additional findings as above. ACT 112: Negative or not required by law. Electronically signed by: Dewey Claudio M.D. 08/09/2023 6:27 PM Diagnostic Findings EKG as per my interpretation : Rate 125, sinus tachycardia, normal axis, no ischemia (1) Chest pain Chest pain type: unspecified Qualified Code(s): R07.9 - Chest pain, unspecified
[2023-08-09] MEDS ORDERED: PROMETHAZINE HCL 12.5 MG in SODIUM CHLORIDE 0.9% 50 ML IV PRN (20:45)
[2023-08-09] MEDS ORDERED: oxyCODONE HCL IR 5 MG TAB (IMMEDIATE RELEASE) PO PRN (20:45)
[2023-08-09] MEDS ORDERED: ACETAMINOPHEN 325 MG TAB PO PRN (20:45)
[2023-08-09] MEDS ORDERED: LORazepam 0.5 MG TAB PO PRN (20:47)
[2023-08-09 22:47] LABS: Lyme Ab IgG w/WB Rflx Positive (Negative); Lyme Ab IgM w/WB Rflx Equivocal (Negative)
[2023-08-09 23:27] LABS: C Reactive Protein 2.6 mg/dl (0-0.5)
[2023-08-09 23:35] LABS: Troponin I High Sensitivity 15.1 pg/ml (0-20)
[2023-08-10] MEDS ORDERED: cefTRIAXone SODIUM 2,000 MG in DEXTROSE 5 % MINI-B 50 ML IV SCH
[2023-08-10] MEDS ORDERED: LABETALOL HCL IV 5 MG/ML 20ML IV STA (02:43)
[2023-08-10] MEDS ORDERED: lisinopril 5 MG TAB PO ONE ×2 (02:45→08:59)
[2023-08-10] MEDS ORDERED: THIAMINE HCL 100 MG in SYRINGE 9 ML IV STA (02:47)
[2023-08-10 04:39] LABS: Basophils # (auto) 0.02 K/uL (0.00-0.20); Basophils % (auto) 0.2 %; Hematocrit (blood only) 37.8 % (42.0-52.0); Hemoglobin 13.3 g/dl (14.0-18.0); Immature Granulocytes # (auto) 0.05 K/uL (0.01-0.20); Immature Granulocytes % (auto) 0.5 %; Lymphocytes % (auto) 11.3 %; Mean Corpuscular Hemoglobin 33.3 pg (25.0-34.0); Mean Corpuscular Hgb Conc 35.2 g/dL (32.0-36.0); Mean Corpuscular Volume 94.7 fL (80.0-100.0); Mean Platelet Volume 10.6 fL (9.4-12.4); Monocytes # (auto) 1.49 K/uL (0.11-0.59); Neutrophils # (auto) 7.89 K/uL (1.40-6.50); Platelet Count 199 K/uL (130-400); RDW Coefficient of Variation 11.9 % (11.5-14.5); Red Blood Count 3.99 M/uL (4.70-6.10); White Blood Count 10.65 K/ul (4.8-10.8)
[2023-08-10 05:00] LABS: Albumin Globulin Ratio 1.5 (0.9-2); BUN Creatinine Ratio 15.2 (10-20); Bilirubin,Total 1.1 mg/dl (0.2-1.0); Calcium 8.5 mg/dl (8.6-10.3); Creatinine Clr Calc Pharmacy 114.4 ml/min; Est GFR (African American) 122.7 ml/min; Est GFR (Non-African American) 105.8 ml/min; Globulin 2.6 gm/dl (2.5-4.0); Potassium 3.3 mmol/L (3.5-5.1); Total Protein 6.6 gm/dl (6.0-8.3)
[2023-08-10] MEDS ORDERED: POTASSIUM CHLORIDE CRTAB 20 MEQ TABCR PO STA (05:34)
[2023-08-10] MEDS ORDERED: ENOXAPARIN INJ 40 MG/0.4 ML SYR SQ SCH (09:00)
--- NOTE | 2023-08-10 09:21 | Cardiology Consultation ---
Date of Consultation August 10, 2023 Assessment & Plan (1) Chest pain at rest: (2) Hypertensive urgency: (3) Coronary atherosclerosis: (4) Hypokalemia: Plan Chest pain. Atypical. At rest. Aggravated by bending and twisting. Area of discomfort correlates with chronic/healed left-sided rib fractures on imaging. EKG without acute change. High-sensitivity troponin within normal range. Resting echocardiography with normal LV function, without wall motion abnormality. General measures advised. Hypertension, hypertensive urgency. Recommend carvedilol 6.25 mg twice per day, lisinopril 10 mg/day, and amlodipine 2.5 mg/day to start. If ongoing hypokalemia observed would add spironolactone next. Coronary artery atherosclerosis. Recommend aspirin 81 mg/day. Check LDL cholesterol then add statin therapy based on results. Recommend outpatient exercise stress echocardiography once blood pressure controlled. Risk factor and lifestyle modification reviewed. Supervising Physician Co-Signing Physician Notes Patient seen and personally examined. 58-year-old male without prior cardiac history presented with chest pain and markedly elevated blood pressures. No recent medical follow-up Chest discomfort symptoms atypical for angina, aggravated by movement and palpation. Cardiac evaluation including EKG cardiac enzymes and echocardiogram not suggestive of myocardial injury or ischemia Patient does warrant intensification of antihypertensive regimen as above, treatment underlying risk factors Would recommend patient establish care with primary care physician May be discharged for outpatient management History of Present Illness Reason for Consultation: Chest pain Requesting Physician: Dr. Dumont Attending Physician: Dr. Saleh History of Present Illness History of Present Illness: Mr. Boris Kemp is a 58-year-old male presented to the [facility] ER on August 09, 2023 with left lower chest pain that started around 8 or 9 in the morning at home. The discomfort is described as a sharp and annoying ache that is exactly the same as the discomfort he experienced with rib injury associated with coughing circa 9 years ago. It is nonradiating. No associated symptoms. Discomfort is exacerbated by bending or twisting. Around 4 PM, after his returned home from work, he decided to present to the ER for further evaluation and treatment. Initial blood pressure was 216/124. - EKG revealed sinus tachycardia at 124 bpm with diffuse nonspecific ST abnormality and a QTc of 465 ms. - High-sensitivity troponin I within normal range as follows: 11.5 -> 12.4 -> 15.1 pg/mL - August 10, 2023 TTE: Normal size LV, with normal wall thickness and wall motion, ER 65-70%. No significant valvular disease. Doppler findings not suggestive of pulmonary hypertension - Inflammatory markers elevated with a sedimentation rate of 26, CRP of 2.60 - Lipase normal at 32 - TSH normal at 1.476 - Imaging revealed a chest x-ray revealing chronic/healed left-sided rib fractures, without acute cardiopulmonary abnormality. - CTA of the chest showed no acute thoracic aortic injury,, PE, or airspace consolidation As best I can tell patient received sublingual nitroglycerin, Nitropaste, lisinopril, 10 mg of IV labetalol, 2.5 mg of IV Lopressor, supplemental potassium and magnesium, and 50 mg of IV Toradol in the ER. Patient denies history of CAD, GA, CHF, arrhythmia, heart murmur, rheumatic fever, or scarlet fever. Prior to the COVID pandemic patient was active including running a half marathon. Past Medical and Surgical History: Hypertension Daily alcohol use History of Lyme disease Tonsillectomy Right shoulder surgery Family History: Mother, father, and sister all with hypertension. Social History: Non-smoker. No smokeless tobacco. Alcohol: 2 glasses of red wine per day. No illegal drug use. 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 Originally from [place]. . 2 children without cardiac issues. Allergies Allergy/AdvReac Type Severity Reaction Status Date / Time nitroglycerin AdvReac Mild Headache Verified 08/09/23 23:03 Home Medications Medication Instructions Recorded Confirmed Type loratadine 10 mg tablet (Claritin) 10 mg PO DAILY PRN allergies 02/05/21 08/09/23 History amlodipine 2.5 mg tablet 2.5 mg PO DAILY #30 tabs 08/10/23 Rx aspirin 81 mg tablet,delayed 81 mg PO QAM 30 days #30 tabs 08/10/23 Rx release carvedilol 6.25 mg tablet 6.25 mg PO BIDM 30 days #60 tabs 08/10/23 Rx lisinopril 10 mg tablet 10 mg PO QAM 30 days #30 tabs 08/10/23 Rx Patient History Medical History Patient denies significant medical history Seasonal allergies Surgical History History of tonsillectomy Social History Smoking Status: Unknown if ever smoked Do You Dip or Chew Tobacco: No; Hx Alcohol Use: Yes Alcohol type: beer and wine Hx Substance Use: No Preferred Language: Libyan Communication Ability: Effective Gambling Box Person Required: No Beliefs That Will Affect Care: None marital status: Current Living Situation: Spouse current occupational status: employed Feels Safe at Home: Yes Safety Concerns: Feels Safe At This Time Assistive Devices: None Review of Systems Review of Systems: Complete review of systems is otherwise as stated above, negative, noncontributory Physical Exam Physical Exam: General: A&Ox3. NAD. HENT: Normocephalic. Atraumatic. Eyes: PER. Conjunctiva pink, sclera clear. Neck: No carotid bruits. No JVD. No HJR. Heart: RRR, 100 bpm. No murmur. No rub. No gallop. PMI is nondisplaced. Lungs: Clear to auscultation. No wheeze. Abdomen: +BS. Soft. Nontender. No masses or organomegaly. Extremities: No clubbing, cyanosis, or edema. Limited neurological examination is without focal deficits. Pulses: radial=2/4, posterior tibial=2/4. Results & Data Vital Signs (Past 12 Hours) Vital Signs Pulse Resp BP Pulse Ox Pulse Ox O2 Del Method O2 Del Method 08/10/23 07:11 107 H 08/10/23 06:30 96 H 23 146/86 H 91 Room Air 08/10/23 05:33 88 08/10/23 05:30 93 H 22 144/90 H 90 Room Air 08/10/23 05:00 91 H 20 147/90 H 90 Room Air 08/10/23 04:30 91 H 21 149/90 H 90 Room Air 08/10/23 04:00 91 H 17 159/100 H 91 Room Air 08/10/23 03:54 96 H 146/94 H 08/10/23 03:30 96 H 21 146/94 H 08/10/23 03:00 97 H 23 154/96 H 08/10/23 02:23 15 97 Room Air 08/10/23 02:10 110 H 15 08/10/23 02:00 191/115 H 08/10/23 02:00 109 H 20 08/10/23 01:50 99 H 15 08/10/23 01:40 106 H 15 08/10/23 01:30 119 H 23 08/10/23 01:30 155/103 H 08/10/23 01:30 155/103 H 08/10/23 01:20 115 H 22 08/10/23 01:10 107 H 15 08/10/23 01:00 102 H 15 92 08/10/23 01:00 168/100 H 08/10/23 00:50 103 H 15 93 08/10/23 00:44 126 H 14 08/10/23 00:35 19 08/10/23 00:32 95 Room Air 08/10/23 00:30 113 H 19 08/10/23 00:30 143/85 H 08/10/23 00:20 104 H 19 08/10/23 00:10 102 H 19 08/10/23 00:01 111 H 23 08/10/23 00:01 167/101 H 08/10/23 00:00 101 H 24 08/09/23 23:50 100 H 19 08/09/23 23:47 104 H 22 08/09/23 23:20 94 H 22 08/09/23 23:10 96 H 22 08/09/23 23:00 97 H 22 08/09/23 22:50 97 H 22 08/09/23 22:40 99 H 22 08/09/23 22:30 157/96 H 08/09/23 22:30 101 H 22 08/09/23 22:20 98 H 15 08/09/23 22:10 98 H 21 08/09/23 21:57 91 H 08/09/23 21:50 91 H 15 93 08/09/23 21:45 154/112 H 08/09/23 21:45 95 H 21 91 08/09/23 21:40 92 H 23 93 08/09/23 21:30 153/81 H 08/09/23 21:30 92 H 22 94 Laboratory Results Cardiac Enzymes 08/09/23 08/09/23 08/09/23 Range/Units 16:52 19:30 22:54 AST 42 H (13-39) U/L Troponin I High Sens 11.5 12.4 15.1 (0-20) pg/ml 08/10/23 Range/Units 03:58 AST 29 (13-39) U/L Troponin I High Sens (0-20) pg/ml Coagulation 08/09/23 Range/Units 16:52 PT 10.9 (9.0-12.0) Seconds APTT 27.7 (21.0-31.0) Seconds CBC 08/09/23 08/10/23 Range/Units 16:52 03:58 WBC 14.19 H 10.65 (4.8-10.8) K/ul RBC 4.52 L 3.99 L (4.70-6.10) M/uL Hgb 15.2 13.3 L (14.0-18.0) g/dl Hct 42.5 37.8 L (42.0-52.0) % Plt Count 248 199 (130-400) K/uL Neut # (Auto) 11.57 H 7.89 H (1.40-6.50) K/uL Lymph # (Auto) 1.14 L 1.20 (1.20-3.40) K/uL [place] # (Auto) 1.34 H 1.49 H (0.11-0.59) K/uL Eos # (Auto) 0.01 0.00 (0.00-0.50) K/uL Baso # (Auto) 0.06 0.02 (0.00-0.20) K/uL Comprehensive Metabolic Panel 08/09/23 08/10/23 Range/Units 16:52 03:58 Sodium 133 L 134 L (136-145) mmol/L Potassium 3.5 3.3 L (3.5-5.1) mmol/L Chloride 96 L 100 (98-107) mmol/L Carbon Dioxide 22 24 (21-32) mmol/L BUN 12 10 (6-23) mg/dl Creatinine 0.72 0.66 (0.6-1.4) mg/dl Glucose 126 H 126 H (70-99(Fasting)) mg/dl Calcium 9.5 8.5 L (8.6-10.3) mg/dl AST 42 H 29 (13-39) U/L ALT 40 26 (7-52) U/L Alkaline Phosphatase 78 58 (34-104) U/L Total Protein 8.2 6.6 (6.0-8.3) gm/dl Albumin 4.9 4.0 (3.4-5.0) gm/dl Intake and Output 08/09/23 08/10/23 08/10/23 22:59 06:59 14:59 Intake Total 1200 / 1250 50 / 1250 Balance 1200 / 1250 50 / 1250 Intake: IV 1200 / 1250 50 / 1250 Magnesium Sulfate / D5w 1 gm In 200 / 200 100 ml @ 50 mls/hr IV ONE STA Rx#:[id number] Sodium Chloride 0.9% 1,000 ml @ 1000 / 1000 999 mls/hr IV .Q1H1M ONE Rx#: [id number] [id number] SODIUM 2,000 mg In 50 / 50 Dextrose 5 % Mini-B 50 ml @ 100 mls/hr IV Q24H [facility] Rx#: [id number] Other: Weight 79 kg 79 kg Weight Measurement Method Chair Scale Built in [facility] Diagnostic Findings Telemetry: Sinus/sinus tachycardia throughout. No arrhythmias observed. (3) Coronary atherosclerosis Associated angina: without angina Coronary Disease-Associated Artery/Lesion type: [place] artery [place] vs. transplanted heart: [place] heart Qualified Code(s): I25.10 - Atherosclerotic heart disease of [place] coronary artery without angina pectoris
[2023-08-10] MEDS ORDERED: carvediloL 6.25 MG TAB PO SCH (10:00)
[2023-08-10] MEDS ORDERED: ASPIRIN 81 MG ECTAB PO SCH (10:00)
--- NOTE | 2023-08-10 13:35 | Electrocardiogram Report ---
Test Reason : Blood Pressure : / mmHG Vent. Rate : 124 BPM Atrial Rate : 124 BPM P-R Int : 142 ms QRS Dur : 084 ms QT Int : 324 ms P-R-T Axes : 053 056 030 degrees QTc Int : 465 ms Sinus tachycardia Nonspecific ST abnormality Abnormal ECG No previous ECGs available Confirmed by Alli Butterfield ([id number]) on 08/10/2023 1:35:48 PM Referred By: REFERRED SELF Confirmed By:Alli Butterfield
--- NOTE | 2023-08-10 15:03 | Hospitalist Progress Note ---
Date of Service August 10, 2023 Assessment & Plan (1) Chest pain: Plan: Multifactorial: Hypertensive urgency, history hypertension, medication noncompliance Musculoskeletal given reproducibility BP systolic 190s upon admission EKG no signs of acute ischemia or infarct Troponin negative Cardiology service consulted Recommend: Amlodipine 2.5 mg p.o. daily, lisinopril 10 mg p.o. daily, carvedilol 6.25 mg Follow-up with PCP in 1 Coronary atherosclerosis Start aspirin 81 mg p.o. daily Check lipid panel, may need statin as well Equivocal Lyme screen IgG positive, IgM equivocal Empiric doxycycline 100 mg p.o. twice daily to complete 10 days Follow-up Western blot daily alcohol intake, denies abuse, no prior history of withdrawal as per patient Disposition Establish with PCP, follow-up in 1 week plan of care discussed with patient in detail and at length all questions answered He is understanding, agreeable, comfortable with the plan of care Emphasized importance to follow-up with PCP, and taking medications regularly Patient verbalized understanding and agreement Admission and Anticipated Discharge Date Admission Date: August 09, 2023 Subjective Follow-up for chest pain, etc. Seen resting in bed, comfortable, not in distress States he feels much better overall Chest pain resolved no chest pain, dyspnea, palpitations, dizziness No fevers or chills, nausea vomiting, headache, neurologic symptoms Ambulating in the room with no problems States he is ready and would like to be discharged today Review of Systems Review of Systems: all noted and negative except for above Physical Exam Physical Exam: General- oriented x 3, not in distress, speaks in sentences with no effort or accessory muscle use Head- atraumatic Eyes- PERRL, EOMI, anicteric ENT- oropharynx clear Neck- supple, no JVD, no adenopathy, no thyromegaly; carotids +2/2, no bruits appreciated Lungs- clear to auscultation bilaterally, no rales/wheezes Heart- normal rate, regular rhythm; no murmur, no gallop, no rub appreciated Abdomen- normal bowel sounds, nondistended, soft, nontender, no masses or hepatosplenomegaly Extremities- no pretibial edema, no calf tenderness; peripheral pulses intact Neuro- alert, oriented x 3; CN 2-12 grossly intact; motor 5/5 bilaterally;sensation 100% on all extremities; no other gross focal neurologic d eficits Skin- warm & dry Results & Data Results & Data Vital Signs (Past 12 Hours) Vital Signs Pulse Pulse Resp BP BP Pulse Ox O2 Del Method 08/10/23 11:31 100 H 24 162/100 H 98 Room Air 08/10/23 09:55 92 H 18 186/107 H 08/10/23 09:54 93 H 18 186/170 H 08/10/23 07:11 107 H 08/10/23 06:30 96 H 23 146/86 H 91 Room Air 08/10/23 05:33 88 08/10/23 05:30 93 H 22 144/90 H 90 Room Air 08/10/23 05:00 91 H 20 147/90 H 90 Room Air 08/10/23 04:30 91 H 21 149/90 H 90 Room Air 08/10/23 04:00 91 H 17 159/100 H 91 Room Air 08/10/23 03:54 96 H 146/94 H 08/10/23 03:30 96 H 21 146/94 H all noted and reviewed including below (1) Chest pain Chest pain type: unspecified Qualified Code(s): R07.9 - Chest pain, unspecified
--- NOTE | 2023-08-10 15:03 | Electrocardiogram Report ---
Test Reason : Blood Pressure : / mmHG Vent. Rate : 090 BPM Atrial Rate : 090 BPM P-R Int : 134 ms QRS Dur : 092 ms QT Int : 398 ms P-R-T Axes : 029 049 056 degrees QTc Int : 486 ms Normal sinus rhythm Prolonged QT Abnormal ECG When compared with ECG of 09-AUG-2023 17:00, ST no longer depressed in Anterolateral leads Confirmed by Alli Butterfield ([id number]) on 08/10/2023 3:02:48 PM Referred By: REFERRED SELF Confirmed By:Alli Butterfield
--- NOTE | 2023-08-10 15:05 | Discharge Summary ---
Discharge Summary Date of Service August 10, 2023 Notes For Next Care Provider Medication Changes From Visit New medications Lisinopril, carvedilol, amlodipine, aspirin Admission HPI Per Admitting Provider History obtained from patient and records. Medical history significant for hypertension, daily alcohol intake, Lyme disease status post treatment (2019), medical noncompliance. Patient experienced pleuritic left lower chest pain today while at work. No radiation. No shortness of breath, no unusual cough symptoms Similar to rib pain episode from coughing secondary to pneumonia years ago. No headache symptoms, no nausea, no vomiting. No recollection of recent tick bites but "ticks are everywhere" as per patient. SBP 210s, heart rate 120s upon arrival at the ER. Patient more comfortable after Toradol, nitro, metoprolol administration at the ER. SBP currently 190s. Patient currently complaining of mild headache symptoms post Nitropaste placement. Patient has a history of hypertension but has refused maintenance medications in the past because he does not like taking pills. Medical History as above Surgical History : Tonsillectomy, right shoulder surgery Family History : Heart disease, hypertension Personal/Social history : Non-smoker, daily wine intake without abuse concerns as per patient, software engineering project manager by profession Admission Exam Per Admitting Provider GENERAL: Comfortable, no respiratory distress SKIN: Normal color, warm HEENT: [place] palpebral conjunctivae, no ptosis, dry buccal mucosa NECK : Supple, no tenderness CHEST : CTA, left chest tenderness HEART : Tachycardic, no obvious murmurs ABDOMEN: Some distention, nontender EXTREMITIES : No LE swelling/tenderness, no other conspicuous deformities noted NEUROLOGIC : Coherent, no facial asymmetry, no other gross focality Principal Dx & Hospital Course #1 = Principal Diagnosis (1) Chest pain: Multifactorial: Hypertensive urgency, history hypertension, medication noncompliance Musculoskeletal given reproducibility BP systolic 190s upon admission EKG no signs of acute ischemia or infarct Troponin negative Cardiology service consulted Recommend: Amlodipine 2.5 mg p.o. daily, lisinopril 10 mg p.o. daily, carvedilol 6.25 mg Follow-up with PCP in 1 Coronary atherosclerosis Start aspirin 81 mg p.o. daily Check lipid panel, may need statin as well Equivocal Lyme screen IgG positive, IgM equivocal Empiric doxycycline 100 mg p.o. twice daily to complete 10 days Follow-up Western blot daily alcohol intake, denies abuse, no prior history of withdrawal as per p atient Disposition Establish with PCP, follow-up in 1 week plan of care discussed with patient in detail and at length all questions answered He is understanding, agreeable, comfortable with the plan of care Emphasized importance to follow-up with PCP, and taking medications regularly Patient verbalized understanding and agreement Discharge Exam General- oriented x 3, not in distress, speaks in sentences with no effort or accessory muscle use Head- atraumatic Eyes- PERRL, EOMI, anicteric ENT- oropharynx clear Neck- supple, no JVD, no adenopathy, no thyromegaly; carotids +2/2, no bruits appreciated Lungs- clear to auscultation bilaterally, no rales/wheezes Heart- normal rate, regular rhythm; no murmur, no gallop, no rub appreciated Abdomen- normal bowel sounds, nondistended, soft, nontender, no masses or hepatosplenomegaly Extremities- no pretibial edema, no calf tenderness; peripheral pulses intact Neuro- alert, oriented x 3; CN 2-12 grossly intact; motor 5/5 bilaterally;sensation 100% on all extremities; no other gross focal neurologic deficits Skin- warm & dry Updated Medication List Medication Instructions Recorded Confirmed Type loratadine 10 mg tablet (Claritin) 10 mg PO DAILY PRN allergies 02/05/21 08/09/23 History amlodipine 2.5 mg tablet 2.5 mg PO DAILY #30 tabs 08/10/23 Rx aspirin 81 mg tablet,delayed 81 mg PO QAM 30 days #30 tabs 08/10/23 Rx release carvedilol 6.25 mg tablet 6.25 mg PO BIDM 30 days #60 tabs 08/10/23 Rx doxycycline hyclate 100 mg capsule 100 mg PO BID 9 days #18 caps 08/10/23 Rx lisinopril 10 mg tablet 10 mg PO QAM 30 days #30 tabs 08/10/23 Rx Hospital Stay Data Consultations 08/09/23 18:40 ED Decision to Admit Stat 08/09/23 23:36 Consult Cardiology Routine Diagnostic Imagining Performed Laboratory Results WBC 10.65 K/ul (4.8-10.8) 08/10/23 03:58 RBC 3.99 M/uL (4.70-6.10) L 08/10/23 03:58 Hgb 13.3 g/dl (14.0-18.0) L 08/10/23 03:58 Hct 37.8 % (42.0-52.0) L 08/10/23 03:58 MCV 94.7 fL (80.0-100.0) 08/10/23 03:58 MCH 33.3 pg (25.0-34.0) 08/10/23 03:58 MCHC 35.2 g/dL (32.0-36.0) 08/10/23 03:58 RDW Std Deviation 41.0 fL (36.4-46.3) 08/10/23 03:58 RDW Coeff of Laura 11.9 % (11.5-14.5) 08/10/23 03:58 Plt Count 199 K/uL (130-400) 08/10/23 03:58 MPV 10.6 fL (9.4-12.4) 08/10/23 03:58 Immature Gran % (Auto) 0.5 % 08/10/23 03:58 Neut % (Auto) 74.0 % 08/10/23 03:58 Lymph % (Auto) 11.3 % 08/10/23 03:58 [place] % (Auto) 14.0 % 08/10/23 03:58 Eos % (Auto) 0.0 % 08/10/23 03:58 Baso % (Auto) 0.2 % 08/10/23 03:58 Neut # (Auto) 7.89 K/uL (1.40-6.50) H 08/10/23 03:58 Lymph # (Auto) 1.20 K/uL (1.20-3.40) 08/10/23 03:58 [place] # (Auto) 1.49 K/uL (0.11-0.59) H 08/10/23 03:58 Eos # (Auto) 0.00 K/uL (0.00-0.50) 08/10/23 03:58 Baso # (Auto) 0.02 K/uL (0.00-0.20) 08/10/23 03:58 Immature Gran # (Auto) 0.05 K/uL (0.01-0.20) 08/10/23 03:58 Peripher Smr Path Cons 08/09/23 16:52 ESR 26 mm/hr (0-20) H 08/09/23 16:52 PT 10.9 Seconds (9.0-12.0) 08/09/23 16:52 INR 1.0 (0.9-1.1) 08/09/23 16:52 APTT 27.7 Seconds (21.0-31.0) 08/09/23 16:52 PTT Ratio 1.0 08/09/23 16:52 Sodium 134 mmol/L (136-145) L 08/10/23 03:58 Potassium 3.3 mmol/L (3.5-5.1) L 08/10/23 03:58 Chloride 100 mmol/L (98-107) 08/10/23 03:58 Carbon Dioxide 24 mmol/L (21-32) 08/10/23 03:58 Anion Gap 10 (3-11) 08/10/23 03:58 BUN 10 mg/dl (6-23) 08/10/23 03:58 Creatinine 0.66 mg/dl (0.6-1.4) 08/10/23 03:58 Est Cr Clr Drug Dosing 114.4 ml/min 08/10/23 03:58 Est GFR ( Amer) 122.7 ml/min 08/10/23 03:58 Est GFR (Non-Af Amer) 105.8 ml/min 08/10/23 03:58 BUN/Creatinine Ratio 15.2 (10-20) 08/10/23 03:58 Glucose 126 mg/dl (70-99(Fasting)) H 08/10/23 03:58 Calcium 8.5 mg/dl (8.6-10.3) L 08/10/23 03:58 Magnesium 2.0 mg/dl (1.7-2.4) 08/10/23 03:58 Total Bilirubin 1.1 mg/dl (0.2-1.0) H 08/10/23 03:58 AST 29 U/L (13-39) 08/10/23 03:58 ALT 26 U/L (7-52) 08/10/23 03:58 Alkaline Phosphatase 58 U/L (34-104) 08/10/23 03:58 Troponin I High Sens 15.1 pg/ml (0-20) 08/09/23 22:54 C-Reactive Protein 2.60 mg/dl (0-0.5) H 08/09/23 22:54 Total Protein 6.6 gm/dl (6.0-8.3) 08/10/23 03:58 Albumin 4.0 gm/dl (3.4-5.0) 08/10/23 03:58 Globulin 2.6 gm/dl (2.5-4.0) 08/10/23 03:58 Albumin/Globulin Ratio 1.5 (0.9-2) 08/10/23 03:58 LDL Cholesterol Direct 150 mg/dl 08/10/23 03:58 Lipase 32 U/L (11-82) 08/09/23 16:52 Procalcitonin 0.06 ng/ml (0-0.5) 08/09/23 16:53 TSH 1.476 uIu/ml (0.300-4.500) 08/09/23 16:52 Urine Color Yellow 08/09/23 17:29 Urine Appearance Clear (Clear) 08/09/23 17:29 Urine pH 6.0 (4.5-7.5) 08/09/23 17:29 Ur Specific [place] 1.038 (1.000-1.030) H 08/09/23 17:29 Urine Protein Negative (Negative) 08/09/23 17:29 Urine Glucose (UA) Negative (Negative) 08/09/23 17:29 Urine Ketones Negative (Negative) 08/09/23 17:29 Urine Blood Negative (Negative) 08/09/23 17:29 Urine Nitrite Negative (Negative) 08/09/23 17:29 Urine Bilirubin Negative (Negative) 08/09/23 17:29 Urine Urobilinogen Negative (Negative) 08/09/23 17:29 Ur Leukocyte Esterase Negative (Negative) 08/09/23 17:29 Urine Opiates Screen Neg (Neg) 08/09/23 17:29 Ur Methadone, Qual Neg (Neg) 08/09/23 17:29 Urine Barbiturates Neg (Neg) 08/09/23 17:29 Ur Phencyclidine (PCP) Neg (Neg) 08/09/23 17:29 U Amphetamin/Meth Scrn Neg (Neg) 08/09/23 17:29 MDMA (Ecstasy) Screen Neg (Neg) 08/09/23 17:29 U Benzodiazepines Scrn Neg (Neg) 08/09/23 17:29 Ur Cocaine Metabolite Neg (Neg) 08/09/23 17:29 U Marijuana (THC) Screen Neg (Neg) 08/09/23 17:29 Ethyl Alcohol mg/dL < 10.0 mg/dl (<10.0) 08/10/23 03:58 Lyme Disease IgG Ab Positive (Negative) A 08/09/23 16:53 Lyme Disease IgM Ab Equivocal (Negative) A 08/09/23 16:53 Impressions Chest X-Ray 08/09/23 16:41 SINGLE VIEW CHEST CLINICAL HISTORY: Atypical chest pain. FINDINGS: An AP, portable, upright chest radiograph is correlated with the dated 02/05/2021. The cardiomediastinal silhouette is unremarkable. There is bibasilar scarring/atelectasis. No airspace consolidation or large pleural effusion is identified. No pneumothorax is seen. The skeletal structures are osteopenic. There are chronic/healed left-sided rib fractures. IMPRESSION: No acute cardiopulmonary abnormality is identified ACT 112: Negative or not required by law. Electronically signed by: Dewey Claudio M.D. 08/09/2023 5:16 PM Abdomen/Pelvis CTA 08/09/23 16:59 CT ANGIOGRAM OF THE CHEST COMBO; CT ANGIOGRAM OF THE ABDOMEN AND PELVIS CLINICAL HISTORY: Atypical chest pain. Generalized abdominal pain. COMPARISON STUDY: CT scan of the chest, abdomen, and pelvis dated 02/05/2021. Chest x-ray dated 08/09/2023. TECHNIQUE: Unenhanced CT scan of the chest is performed. Following the IV administration of 110 cc of Optiray 320, CT angiogram of the chest, abdomen, and pelvis was performed from the thoracic inlet to the proximal femora. Images are reviewed in the axial, sagittal, and coronal planes. 3-D MIPS images are created and assessed. IV contrast was administered without complication. A dose lowering technique was utilized adhering to the principles of ALARA. CT DOSE: 1626.84 mGy.cm FINDINGS: CHEST: Thyroid: Imaged portions of the thyroid gland are normal in size and attenuat ion. Thoracic aorta: No intramural hematoma is seen on the unenhanced series. The thoracic aorta is normal in course and caliber. The aortic arch demonstrates 4- vessel variant anatomy. No aneurysm or dissection is seen. The arch vessels are widely patent. Pulmonary vasculature: The pulmonary trunk is normal in caliber. There are no filling defects identified in the central pulmonary vessels to indicate pulmonary embolus. Note that this examination was not protocoled for evaluation of the pulmonary arteries. Heart: The heart is normal in size and without pericardial effusion. There is coronary artery atherosclerosis. Lungs and pleural spaces: There is bibasilar scarring/atelectasis. No airspace consolidation or pleural effusion is identified. The trachea and central airways are clear. Mediastinum: There is no mediastinal lymphadenopathy. Pam: Clear. Axillae: There is no axillary lymphadenopathy. Bony thorax: No destructive bony lesions are identified. Arthritic change is seen in the shoulders. There are chronic/healed bilateral rib fractures. ABDOMEN AND PELVIS: Liver: The contrast-enhanced liver is normal in size, contour, and attenuation. There is no intrahepatic biliary ductal dilatation. The main portal veins appear patent. A 1 cm hypervascular focus in the left lobe on image #88 is unchanged and may represent a flash filling hemangioma. Gallbladder: Unremarkable. Spleen: Normal in size and attenuation. Pancreas: Unremarkable. Adrenal glands: Unremarkable. Kidneys: The contrast enhanced kidneys are normal in size and without hydronephrosis. The kidneys enhance symmetrically. Abdominal aorta and iliac arteries: The abdominal aorta is normal in course and caliber. No dissection is seen. The iliac arteries are widely patent bilaterally . Major branches of the abdominal aorta: The celiac trunk, superior mesenteric, and inferior mesenteric arteries are widely patent. Hepatic arterial anatomy is conventional. The splenic artery is patent. There are 3 right renal arteries. One of these arises from the right common iliac artery. A single renal artery is seen on the left. The renal arteries are widely patent bilaterally. Stomach and bowel: A small hiatal hernia is noted. There is mild colonic diverticulosis without CT evidence of acute diverticulitis. No bowel obstruction is seen. The appendix is well-visualized and normal. Peritoneum: There is no intraperitoneal free air or abdominal ascites. Lymphadenopathy: None. Pelvic viscera: The bladder, prostate, and seminal vesicles are normal as visualized. Skeletal structures: No destructive bony lesions are seen. There is mild lumbosacral spondylosis. Arthritic change is seen in the hips. IMPRESSION: 1. Unremarkable CT angiogram of the thoracic aorta. 2. There is no airspace consolidation typical for pneumonia or pleural effusion. 3. Coronary artery atherosclerosis. 4. Unremarkable CT angiogram of the abdominal aorta and its major branches. 5. No acute infectious or inflammatory findings are seen in the abdomen or pelvis. 6. Colonic diverticulosis without CT evidence of acute diverticulitis. 7. Additional findings as above. ACT 112: Negative or not required by law. Electronically signed by: Dewey Claudio M.D. 08/09/2023 6:27 PM Chest CTA 08/09/23 16:59 CT ANGIOGRAM OF THE CHEST COMBO; CT ANGIOGRAM OF THE ABDOMEN AND PELVIS CLINICAL HISTORY: Atypical chest pain. Generalized abdominal pain. COMPARISON STUDY: CT scan of the chest, abdomen, and pelvis dated 02/05/2021. Chest x-ray dated 08/09/2023. TECHNIQUE: Unenhanced CT scan of the chest is performed. Following the IV administration of 110 cc of Optiray 320, CT angiogram of the chest, abdomen, and pelvis was performed from the thoracic inlet to the proximal femora. Images are reviewed in the axial, sagittal, and coronal planes. 3-D MIPS images are created and assessed. IV contrast was administered without complication. A dose lowering technique was utilized adhering to the principles of ALARA. CT DOSE: 1626.84 mGy.cm FINDINGS: CHEST: Thyroid: Imaged portions of the thyroid gland are normal in size and attenuation. Thoracic aorta: No intramural hematoma is seen on the unenhanced series. The thoracic aorta is normal in course and caliber. The aortic arch demonstrates 4- vessel variant anatomy. No aneurysm or dissection is seen. The arch vessels are widely patent. Pulmonary vasculature: The pulmonary trunk is normal in caliber. There are no filling defects identified in the central pulmonary vessels to indicate pulmonary embolus. Note that this examination was not protocoled for evaluation of the pulmonary arteries. Heart: The heart is normal in size and without pericardial effusion. There is coronary artery atherosclerosis. Lungs and pleural spaces: There is bibasilar scarring/atelectasis. No airspace consolidation or pleural effusion is identified. The trachea and central airways are clear. Mediastinum: There is no mediastinal lymphadenopathy. Pam: Clear. Axillae: There is no axillary lymphadenopathy. Bony thorax: No destructive bony lesions are identified. Arthritic change is seen in the shoulders. There are chronic/healed bilateral rib fractures. ABDOMEN AND PELVIS: Liver: The contrast-enhanced liver is normal in size, contour, and attenuation. There is no intrahepatic biliary ductal dilatation. The main portal veins appear patent. A 1 cm hypervascular focus in the left lobe on image #88 is unchanged and may represent a flash filling hemangioma. Gallbladder: Unremarkable. Spleen: Normal in size and attenuation. Pancreas: Unremarkable. Adrenal glands: Unremarkable. Kidneys: The contrast enhanced kidneys are normal in size and without hydronephrosis. The kidneys enhance symmetrically. Abdominal aorta and iliac arteries: The abdominal aorta is normal in course and caliber. No dissection is seen. The iliac arteries are widely patent bilaterally. Major branches of the abdominal aorta: The celiac trunk, superior mesenteric, and inferior mesenteric arteries are widely patent. Hepatic arterial anatomy is conventional. The splenic artery is patent. There are 3 right renal arteries. One of these arises from the right common iliac artery. A single renal artery is seen on the left. The renal arteries are widely patent bilaterally. Stomach and bowel: A small hiatal hernia is noted. There is mild colonic diverticulosis without CT evidence of acute diverticulitis. No bowel obstruction is seen. The appendix is well-visualized and normal. Peritoneum: There is no intraperitoneal free air or abdominal ascites. Lymphadenopathy: None. Pelvic viscera: The bladder, prostate, and seminal vesicles are normal as visualized. Skeletal structures: No destructive bony lesions are seen. There is mild lumbosacral spondylosis. Arthritic change is seen in the hips. IMPRESSION: 1. Unremarkable CT angiogram of the thoracic aorta. 2. There is no airspace consolidation typical for pneumonia or pleural effusion. 3. Coronary artery atherosclerosis. 4. Unremarkable CT angiogram of the abdominal aorta and its major branches. 5. No acute infectious or inflammatory findings are seen in the abdomen or pelvis. 6. Colonic diverticulosis without CT evidence of acute diverticulitis. 7. Additional findings as above. ACT 112: Negative or not required by law. Electronically signed by: Dewey Claudio M.D. 08/09/2023 6:27 PM 08/09/23 16:59 CT angio abdomen pelvis w con Stat CT angio chest dissec wo/w con Stat Pending Results Patient Have Any Pending Studies at Discharge: No Discharge Instructions Given to Patient (Per Discharging Provider) PLEASE REFER TO YOUR NEW MEDICATION LIST AND FOLLOW INSTRUCTIONS CAREFULLY. YOUR NEW MEDICATIONS INCLUDE: LISINOPRIL, AMLODIPINE, CARVEDILOL - for blood pressure control ASPIRIN - for prevention of heart attack DOXYCYCLINE - antibiotic for possible Lyme Disease PLEASE CALL YOUR PRIMARY CARE PHYSICIAN OR RETURN TO THE ER IF WITH WORSENING OF SYMPTOMS, INCLUDING chest pain, shortness of breath, dizziness, palpitations, headache, nausea/vomiting, etc FOLLOW UP WITH PRIMARY CARE PHYSICIAN OUTLINED ABOVE. Total Time Total Time Spent Total Time Spent (In Minutes): >30 minutes
[2023-08-10] MEDS ORDERED: lisinopril 5 MG TAB PO SCH (21:00)
[2023-08-11] MEDS ORDERED: lisinopril 10 MG TAB PO SCH (09:00)
[2023-08-12 08:28] LABS: 18KDIGG Band REACTIVE; 23KDIGG Band REACTIVE; 23KDIGM Band REACTIVE; 28KDIGG Band NON-REACTIVE; 30KDIGG Band NON-REACTIVE; 39KDIGG Band REACTIVE; 39KDIGM Band REACTIVE; 41KDIGG Band REACTIVE; 41KDIGM Band NON-REACTIVE; 45KDIGG Band NON-REACTIVE; 58KDIGG Band NON-REACTIVE; 66KDIGG Band NON-REACTIVE; 93KDIGG Band NON-REACTIVE; Lyme Antibodies, WB IgG NEGATIVE (NEGATIVE); Lyme Antibodies, WB IgM POSITIVE (NEGATIVE)
== END 2023-08-10 15:15 | disposition home or self-care (01) | DRG 305 ==
LOC: ED 16:35 → INTOOBSV 20:43 → EDINP 20:43